=== PATIENT | female | born 1985 | race Caucasian/White ===

== ENCOUNTER 2020-09-07 15:53 | Emergency (ER) | payer OTHER ==
[~2020-09-07] VITALS: Ht 172.7 cm; Wt 72.4 kg
[2020-09-07 16:03] VITALS: BP 131/80
[2020-09-07] MEDS ORDERED: TIZA4CAP6 PO (16:09)
[2020-09-07] MEDS ORDERED: OXYC1TAB15 PO (16:09)
[2020-09-07] MEDS ORDERED: predniSONE 20 MG TAB PO ONE (16:40)
[2020-09-07] MEDS ORDERED: methocarbamoL 750 MG TAB PO ONE (16:40)
[2020-09-07] MEDS ORDERED: ROBA750T4 PO (16:42)
[2020-09-07] MEDS ORDERED: PRED20TA PO (16:42)
== END 2020-09-07 16:57 | disposition home or self-care (01) ==
LOC: M ED 15:53
DX: M62.838 Other muscle spasm (principal); M25.511 Pain in right shoulder; M54.6 Pain in thoracic spine; R51.9 Headache, unspecified; Z88.6 Allergy status to analgesic agent; Z79.899 Other long term (current) drug therapy

== ENCOUNTER 2021-04-28 14:48 | Inpatient (IN) | payer MEDICAID, OTHER ==
[~2021-04-28] VITALS: Ht 172.7 cm; Wt 65.8 kg
[~2021-04-28 14:48] MED LIST: OXYC7.5T3 PO; PRED20TA PO; ROBA750T4 PO; TIZA4CAP6 PO
--- OUTSIDE RECORDS SUMMARY | 2021-04-28 14:59 | CCD ---
Author Author [facility] Organization [facility] Address Unknown Phone Unavailable Care Team Providers Care Secretary Administrative Assistant Name Role Phone Vincenzo Zamorano MD Unavailable Unavailable Vincenzo Zamorano MD Unavailable Unavailable Vincenzo Zamorano MD Unavailable Unavailable Vincenzo Zamorano MD Unavailable Unavailable Vincenzo Zamorano MD Unavailable Unavailable Vincenzo Zamorano MD Unavailable Unavailable Vincenzo Zamorano MD Unavailable Unavailable Vincenzo Zamorano MD Unavailable Unavailable Vincenzo Zamorano MD Unavailable Unavailable Vincenzo Zamorano MD Unavailable Unavailable Vincenzo Zamorano MD Unavailable Unavailable Vincenzo Zamorano MD Unavailable Vincenzo Mo MD Unavailable Unavailable Vincenzo Zamorano MD Unavailable Unavailable Vincenzo Zamorano MD Unavailable Unavailable Chahfe, Vincenzo Tye FITZGERALD Unavailable Unavailable Chahfe, Vincenzo Tye MD Unavailable Unavailable Chahfe, Vincenzosuzy Gamble MD Unavailable Unavailable Chahfe, Vincenzo Tye FITZGERALD Unavailable Unavailable Chahfe, Vincenzo Tye MD Unavailable Unavailable Moraimahfe, Vincenzo Tye FITZGERALD Unavailable Unavailable Chahfe, Vincenzo Tye MD Unavailable Unavailable Chahfe, Vincenzo Tye FITZGERALD Unavailable Unavailable Chahfe, Vincenzo Tye MD Unavailable Unavailable Chahfe, Vincenzo Tye MD Unavailable Unavailable Chahfe, Vincenzo Tye FITZGERALD Unavailable Unavailable Chahfe, Vincenzo Tye MD Unavailable Unavailable Moraimahfe, Vincenzo Tye FITZGERALD Unavailable Unavailable Moraimahfe, Vincenzo Tye FITZGERALD Unavailable Unavailable Moraimahfe, Vincenzo Tye FITZGERALD Unavailable Unavailable Moraimahfe, Vincenzo Tye FITZGERALD Unavailable Unavailable Moraimahfe, Vincenzo Tye FITZGERALD Unavailable Unavailable Matheusfe, Vincenzo Tye FITZGERALD Unavailable Unavailable Moraimahfe, Vincenzo Tye FITZGERALD Unavailable Unavailable Chahfe, Vincenzosuzy Gamble MD Unavailable Unavailable Chadianafe, Vincenzosuzy Gamble MD Unavailable Unavailable Matheusfe, Vincenzo Tye FITZGERALD Unavailable Unavailable Matheusfe, Vincenzosuzy Gamble MD Unavailable Unavailable Matheusfe, Vincenzosuzy Gamble MD Unavailable Unavailable Matheusfe, Vincenzosuzy Gamble MD Unavailable Unavailable Matheusfe, Vincenzosuzy Gamble MD Unavailable Unavailable Lona, Vincenzosuzy Gamble MD Unavailable Unavailable Lona, Vincenzosuzy Gamble MD Unavailable Unavailable Lona, Vincenzosuzy Gamble MD Unavailable Unavailable Lona, Vincenzosuzy Gamble MD Unavailable Unavailable Matheusfe, Vincenzosuzy Gamble MD Unavailable Unavailable Lona, Vincenzosuzy Gamble MD Unavailable Unavailable Lona, Vincenzosuzy Gamble MD Unavailable Unavailable Lona, Vincenzosuzy Gamble MD Unavailable Unavailable Lona, Vincenzo Gamble MD Unavailable Unavailable Vincenzo Zamorano MD Unavailable Unavailable Lona, Vincenzosuzy Gamble MD Unavailable Unavailable Vincenzo Zamorano MD Unavailable Unavailable Lona, Vincenzosuzy Gamble MD Unavailable Unavailable Vincenzo Zamorano MD Unavailable Unavailable Lona, Vincenzosuzy Gamble MD Unavailable Unavailable Vincenzo Zamorano MD Unavailable Unavailable Vincenzo Zamorano MD Unavailable Unavailable Vincenzo Zamorano MD Unavailable Unavailable Vincenzo Zamorano MD Unavailable Unavailable Vincenzo Zamorano MD Unavailable Unavailable Vincenzo Zamorano MD Unavailable Unavailable Vincenzo Zamorano MD Unavailable Unavailable Vincenzo Zamorano MD Unavailable Unavailable Vincenzo Zamorano MD Unavailable Unavailable Vincenzo Zamorano MD Unavailable Unavailable Vincenzo Zamorano MD Unavailable Unavailable Vincenzo Zamorano MD Unavailable Unavailable Vincenzo Zamorano MD Unavailable Unavailable Vincenzo Zamorano MD Unavailable Unavailable Vincenzo Zamorano MD Unavailable Unavailable Vincenzo Zamorano MD Unavailable Unavailable Vincenzo Zamorano MD Unavailable Unavailable Vincenzo Zamorano MD Unavailable Unavailable Vincenzo Zamorano MD Unavailable Unavailable Vincenzo Zamorano MD Unavailable Unavailable Vincenzo Zamorano MD Unavailable Unavailable Vincenzo Zamorano MD Unavailable Unavailable Vincenzo Zamorano MD Unavailable Unavailable Vincenzo Zamorano MD Unavailable Unavailable Vincenzo Zamorano MD Unavailable Unavailable Vincenzo Zamorano MD Unavailable Unavailable Vincenzo Zamorano MD Unavailable Unavailable Atul Savage Unavailable Unavailable Dashawn CANALES MD Unavailable Unavailable Dashawn CANALES MD Unavailable Unavailable Dashawn CANALES MD Unavailable Unavailable Dashawn CANALES MD Unavailable Unavailable Dashawn CANALES MD Unavailable Unavailable Dashawn CANALES MD Unavailable Unavailable Dashawn CANALES MD Unavailable Unavailable Dashawn CANALES MD Unavailable Unavailable Dashawn CANALES MD Unavailable Unavailable Dashawn CANALES MD Unavailable Unavailable Dashawn CANALES MD Unavailable Unavailable Dashawn CANALES MD Unavailable Unavailable Dashawn CANALES MD Unavailable Unavailable Dashawn CANALES MD Unavailable Unavailable Dashawn CANALES MD Unavailable Unavailable Dashawn CANALES MD Unavailable Unavailable Dashawn CANALES MD Unavailable Unavailable Dashawn CANALES MD Unavailable Unavailable Dashawn CANALES MD Unavailable Unavailable Dashawn CANALES MD Unavailable Unavailable Dashawn CANALES MD Unavailable Unavailable Dashawn CANALES MD Unavailable Unavailable Dashawn CANALES MD Unavailable Unavailable Dashawn CANALES MD Unavailable Unavailable Dashawn CANALES MD Unavailable Unavailable Dashawn CANALES MD Unavailable Unavailable Rosemary Handy MD Unavailable Unavailable Rosemary Handy MD Unavailable Unavailable Rosemary Handy MD Unavailable Unavailable Rosmeary Handy MD Unavailable Unavailable Rosemary Handy MD Unavailable Unavailable Rosemary Handy MD Unavailable Unavailable Rosemary Handy MD Unavailable Unavailable Rosemary Handy MD Unavailable Unavailable Rosemary Handy MD Unavailable Unavailable Rosemary Handy MD Unavailable Unavailable Rosemary Handy MD Unavailable Unavailable Rosemary Handy MD Unavailable Unavailable Rosemary Handy MD Unavailable Unavailable Rosemary Handy MD Unavailable Unavailable Rosemary Handy MD Unavailable Unavailable Rosemary Handy MD Unavailable Unavailable Rosemary Handy MD Unavailable Unavailable Rosemary Handy MD Unavailable Unavailable Rosemary Handy MD Unavailable Unavailable Rosemary Handy MD Unavailable Unavailable Rosemary Handy MD Unavailable Unavailable Hadian, Josse Unavailable Unavailable Hadian, Josse Unavailable Unavailable Hadian, Josse Unavailable Unavailable Hadian, Josse Unavailable Unavailable Hadian, Josse Unavailable Unavailable Hadian, Josse Unavailable Unavailable Hadian, Josse Unavailable Unavailable Hadian, Josse Unavailable Unavailable Hadian, Josse Unavailable Unavailable Hadian, Josse Unavailable Unavailable Hadian, Josse Unavailable Unavailable Hadian, Josse Unavailable Unavailable Hadian, Josse Unavailable Unavailable Hadian, Josse Unavailable Unavailable Hadian, Josse Unavailable Unavailable Hadian, Josse Unavailable Unavailable Hadian, Josse Unavailable Unavailable Hadian, Josse Unavailable Unavailable Hadian, Josse Unavailable Unavailable Hadian, Josse Unavailable Unavailable Hadian, Josse Unavailable Unavailable Hadian, Josse Unavailable Unavailable Hadian, Josse Unavailable Unavailable Hadian, Josse Unavailable Unavailable Hadian, Josse Unavailable Unavailable Hadian, Josse Unavailable Unavailable Hadian, Josse Unavailable Unavailable Hadian, Josse Unavailable Unavailable Hadian, Josse Unavailable Unavailable Hadian, Josse Unavailable Unavailable Hadian, Josse Unavailable Unavailable Hadian, Josse Unavailable Unavailable Hadian, Josse Unavailable Unavailable Hadian, Josse Unavailable Unavailable Hadian, Josse Unavailable Unavailable Hadian, Josse Unavailable Unavailable Hadian, Josse Unavailable Unavailable Hadian, Josse Unavailable Unavailable Hadian, Josse Unavailable Unavailable Hadian, Josse Unavailable Unavailable Hadian, Josse Unavailable Unavailable Hadian, Josse Unavailable Unavailable María F Brown, F SOFT SUGAR SUPERVISOR SOFT SUGAR SUPERVISOR Unavailable Unavailable María F Brown, F SOFT SUGAR SUPERVISOR SOFT SUGAR SUPERVISOR Unavailable Unavailable ANTON BUI MD Unavailable Unavailable ANTON BUI MD Unavailable Unavailable ANTON BUI MD Unavailable Unavailable ANTON BUI MD Unavailable Unavailable ANTON BUI MD Unavailable Unavailable ANTON BUI MD Unavailable Unavailable ANTON BUI MD Unavailable Unavailable ANTON BUI MD Unavailable Unavailable ANTON BUI MD Unavailable Unavailable ANTON BUI MD Unavailable Unavailable ANTON BUI MD Unavailable Unavailable ANTON BUI MD Unavailable Unavailable ANTON BUI MD Unavailable Unavailable ANTON BUI MD Unavailable Unavailable ANTON BUI MD Unavailable Unavailable ANTON BUI MD Unavailable Unavailable ANTON BUI MD Unavailable Unavailable ANTON BUI MD Unavailable Unavailable ANTON BUI MD Unavailable Unavailable ANTON BUI MD Unavailable Unavailable ANTON BUI MD Unavailable Unavailable ANTON BUI MD Unavailable Unavailable ANTON BUI MD Unavailable Unavailable ANTON BUI MD Unavailable Unavailable ANTON BUI MD Unavailable Unavailable ANTON BUI MD Unavailable Unavailable ANTON BUI MD Unavailable Unavailable ANTON BUI MD Unavailable Unavailable ANTON BUI MD Unavailable Unavailable ANTON BUI MD Unavailable Unavailable ANTON BUI MD Unavailable Unavailable ANTON BUI MD Unavailable Unavailable ANTON BUI MD Unavailable Unavailable ANTON BUI MD Unavailable Unavailable ANOTN BUI MD Unavailable Unavailable ANTON BUI MD Unavailable Unavailable ANTON BUI MD Unavailable Unavailable ANTON BUI MD Unavailable Unavailable ANTON BUI MD Unavailable Unavailable ANTON BUI MD Unavailable Unavailable ANTON BUI MD Unavailable Unavailable ANTON BUI MD Unavailable Unavailable ANTON BUI MD Unavailable Unavailable ANTON BUI MD Unavailable Unavailable ANTON BUI MD Unavailable Unavailable ANTON BUI MD Unavailable Unavailable ANTON BUI MD Unavailable Unavailable ANTON BUI MD Unavailable Unavailable ANTON BUI MD Unavailable Unavailable ANTON BUI MD Unavailable Unavailable ANTON BUI MD Unavailable Unavailable ANTON BUI MD Unavailable Unavailable ANTON BUI MD Unavailable Unavailable ANTON BUI MD Unavailable Unavailable RAMYAANTON ROBB MD Unavailable Unavailable RAMYAANTON ROBB MD Unavailable Unavailable ANTON BUI MD Unavailable Unavailable ANTON BUI MD Unavailable Unavailable ANTON BUI MD Unavailable Unavailable ANTON BUI MD Unavailable Unavailable RAMYAANTON ROBB MD Unavailable Unavailable RAMYAANTON ROBB MD Unavailable Unavailable RAMYAANTON ROBB MD Unavailable Unavailable RAMYAANTON ROBB MD Unavailable Unavailable RAMYAANTON ROBB MD Unavailable Unavailable RAMYAANTON ROBB MD Unavailable Unavailable RAMYAANTON ROBB MD Unavailable Unavailable RAMYAANTON ROBB MD Unavailable Unavailable RAMYAANTON ROBB MD Unavailable Unavailable RAMYAANTON ROBB MD Unavailable Unavailable RAMYAANTON ROBB MD Unavailable Unavailable ANTON BUI MD Unavailable Unavailable ANTON BUI MD Unavailable Unavailable ATNON BUI MD Unavailable Unavailable ANTON BUI MD Unavailable Unavailable ANTON BUI MD Unavailable Unavailable ANTON BUI MD Unavailable Unavailable ANTON BUI MD Unavailable Unavailable ANTON BUI MD Unavailable Unavailable ANTON BUI MD Unavailable Unavailable ANTON BUI MD Unavailable Unavailable ANTON BUI MD Unavailable Unavailable ANTON BUI MD Unavailable Unavailable ANTON BUI MD Unavailable Unavailable ANTON BUI MD Unavailable Unavailable Bella Crisostomo MD Unavailable Unavailable Bella Crisostomo MD Unavailable Unavailable Bella Crisostomo MD Unavailable Unavailable Bella Crisostomo MD Unavailable Unavailable Hadian, Josse Unavailable Unavailable Hadian, Josse Unavailable Unavailable Hadian, Josse Unavailable Unavailable Hadian, Josse Unavailable Unavailable Hadian, Josse Unavailable Unavailable Hadian, Josse Unavailable Unavailable Hadian, Josse Unavailable Unavailable Hadian, Josse Unavailable Unavailable Hadian, Josse Unavailable Unavailable Hadian, Josse Unavailable Unavailable Hadian, Josse Unavailable Unavailable Hadian, Josse Unavailable Unavailable Hadian, Josse Unavailable Unavailable Hadian, Josse Unavailable Unavailable Hadian, Josse Unavailable Unavailable Hadian, Josse Unavailable Unavailable Hadian, Josse Unavailable Unavailable Hadian, Josse Unavailable Unavailable Hadian, Josse Unavailable Unavailable Hadian, Josse Unavailable Unavailable Hadian, Josse Unavailable Unavailable Hadian, Josse Unavailable Unavailable Hadian, Josse Unavailable Unavailable Hadian, Josse Unavailable Unavailable Hadian, Josse Unavailable Unavailable Hadian, Josse Unavailable Unavailable Hadian, Josse Unavailable Unavailable Hadian, Josse Unavailable Unavailable Hadian, Josse Unavailable Unavailable Hadian, Josse Unavailable Unavailable Hadian, Josse Unavailable Unavailable Hadian, Josse Unavailable Unavailable Hadian, Josse Unavailable Unavailable Hadian, Josse Unavailable Unavailable Hadian, Josse Unavailable Unavailable Hadian, Josse Unavailable Unavailable Hadian, Josse Unavailable Unavailable Hadian, Josse Unavailable Unavailable Hadian, Josse Unavailable Unavailable Hadian, Josse Unavailable Unavailable Hadian, Josse Unavailable Unavailable Hadian, Josse Unavailable Unavailable Rosemary Handy MD Unavailable Unavailable Rosemary Handy MD Unavailable Unavailable Rosemary Handy MD Unavailable Unavailable Rosemary Handy MD Unavailable Unavailable Rosemary Handy MD Unavailable Unavailable Rosemary Handy MD Unavailable Unavailable Rosemary Handy MD Unavailable Unavailable Rosemary Handy MD Unavailable Unavailable Rosemary Handy MD Unavailable Unavailable Rosemary Handy MD Unavailable Unavailable Rosemary Handy MD Unavailable Unavailable Rosemary Handy MD Unavailable Unavailable Rosemary Handy MD Unavailable Unavailable Rosemary Handy MD Unavailable Unavailable Rosemary Handy MD Unavailable Unavailable Rosemary Handy MD Unavailable Unavailable Rosemary Handy MD Unavailable Unavailable Rosemary Handy MD Unavailable Unavailable Rosemary Handy MD Unavailable Unavailable Rosemary Handy MD Unavailable Unavailable Rosemary Handy MD Unavailable Unavailable CICIENRIQUETA MD Unavailable Unavailable CICI, ENRIQUETA MD Unavailable Unavailable CICI, ENRIQUETA MD Unavailable Unavailable CICI, ENRIQUETA MD Unavailable Unavailable CICI, ENRIQUETA FITZGERALD Unavailable Unavailable CICI, ENRIQUETA MD Unavailable Unavailable CICI, ENRIQUETA MD Unavailable Unavailable CICI, ENRIQUETA MD Unavailable Unavailable CICI, ENRIQUETA MD Unavailable Unavailable CICI, ENRIQUETA MD Unavailable Unavailable CICI, ENRIQUETA MD Unavailable Unavailable CICI, ENRIQUETA MD Unavailable Unavailable CICI, ENRIQUETA MD Unavailable Unavailable CICI, ENRIQUETA MD Unavailable Unavailable CICI, ENRIQUETA MD Unavailable Unavailable CICI, ENRIQUETA MD Unavailable Unavailable CICI, ENRIQUETA MD Unavailable Unavailable CICI, ENRIQUETA MD Unavailable Unavailable CICI, ENRIQUETA MD Unavailable Unavailable CICI, ENRIQUETA MD Unavailable Unavailable CICI, ENRIQUETA MD Unavailable Unavailable CICI, ENRIQUETA MD Unavailable Unavailable CICI, ENRIQUETA MD Unavailable Unavailable CICI, ENRIQUETA MD Unavailable Unavailable CICI, ENRIQUETA MD Unavailable Unavailable CICI, ENRIQUETA MD Unavailable Unavailable CICI, ENRIQUETA MD Unavailable Unavailable CICI, ENRIQUETA MD Unavailable Unavailable CICI, ENRIQUETA MD Unavailable Unavailable CICI, ENRIQUETA MD Unavailable Unavailable CICI, ENRIQUETA MD Unavailable Unavailable CICI, ENRIQUETA MD Unavailable Unavailable CICI, ENRIQUETA MD Unavailable Unavailable CICI, ENRIQUETA MD Unavailable Unavailable CICI, ENRIQUETA MD Unavailable Unavailable CICI, ENRIQUETA MD Unavailable Unavailable CICI, ENRIQUETA MD Unavailable Unavailable CICI, ENRIQUETA MD Unavailable Unavailable CICI, ENRIQUETA MD Unavailable Unavailable CICI, ENRIQUETA MD Unavailable Unavailable CICI, ENRIQUETA MD Unavailable Unavailable CICI, ENRIQUETA MD Unavailable Unavailable CICI, ENRIQUETA MD Unavailable Unavailable Capone, Marisabel Anny PA Unavailable Unavailable Capone, Marisabel Anny PA Unavailable Unavailable Capone, Marisabel Anny PA Unavailable Unavailable Capone, Marisabel Anny PA Unavailable Unavailable Capone, Marisabel Anny PA Unavailable Unavailable Capone, Marisabel Anny PA Unavailable Unavailable Capone, Marisabel Anny PA Unavailable Unavailable Capone, Marisabel Anny PA Unavailable Unavailable Capone, Marisabel Anny PA Unavailable Unavailable Capone, Marisabel Anny PA Unavailable Unavailable Elsie Can MD Unavailable Unavailable Elsie Can MD Unavailable Unavailable BROWN, CR MARÍA SEARCH AND RESCUE OFFICER Unavailable Unavailable BROWN, CR MARÍA SEARCH AND RESCUE OFFICER Unavailable Unavailable BROWN, CR MARÍA SEARCH AND RESCUE OFFICER Unavailable Unavailable BROWN, CR MARÍA SEARCH AND RESCUE OFFICER Unavailable Unavailable BROWN, CR MARÍA SEARCH AND RESCUE OFFICER Unavailable Unavailable BROWN, CR MARÍA SEARCH AND RESCUE OFFICER Unavailable Unavailable BROWN, CR MARÍA SEARCH AND RESCUE OFFICER Unavailable Unavailable BROWN, CR MARÍA SEARCH AND RESCUE OFFICER Unavailable Unavailable BROWN, CR MARÍA SEARCH AND RESCUE OFFICER Unavailable Unavailable BROWN, RC MARÍA SEARCH AND RESCUE OFFICER Unavailable Unavailable BROWN, CR MARÍA SEARCH AND RESCUE OFFICER Unavailable Unavailable BROWN, CR MARÍA SEARCH AND RESCUE OFFICER Unavailable Unavailable BROWN, CR MARÍA SEARCH AND RESCUE OFFICER Unavailable Unavailable BROWN, CR MARÍA SEARCH AND RESCUE OFFICER Unavailable Unavailable BROWN, CR MARÍA SEARCH AND RESCUE OFFICER Unavailable Unavailable BROWN, CR MARÍA SEARCH AND RESCUE OFFICER Unavailable Unavailable BROWN, CR MARÍA SEARCH AND RESCUE OFFICER Unavailable Unavailable BROWN, CR MARÍA SEARCH AND RESCUE OFFICER Unavailable Unavailable BROWN, CR MARÍA SEARCH AND RESCUE OFFICER Unavailable Unavailable BROWN, CR MARÍA SEARCH AND RESCUE OFFICER Unavailable Unavailable BROWN, CR MARÍA SEARCH AND RESCUE OFFICER Unavailable Unavailable BROWN, CR MARÍA SEARCH AND RESCUE OFFICER Unavailable Unavailable BROWN, CR MARÍA SEARCH AND RESCUE OFFICER Unavailable Unavailable BROWN, CR MARÍA SEARCH AND RESCUE OFFICER Unavailable Unavailable BROWN, CR MARÍA SEARCH AND RESCUE OFFICER Unavailable Unavailable BROWN, CR MARÍA SEARCH AND RESCUE OFFICER Unavailable Unavailable BROWN, CR MARÍA SEARCH AND RESCUE OFFICER Unavailable Unavailable BROWN, CR MARÍA SEARCH AND RESCUE OFFICER Unavailable Unavailable BROWN, CR MARÍA SEARCH AND RESCUE OFFICER Unavailable Unavailable BROWN, CR MARÍA SEARCH AND RESCUE OFFICER Unavailable Unavailable BROWN, CR MARÍA SEARCH AND RESCUE OFFICER Unavailable Unavailable BROWN, CR MARÍA SEARCH AND RESCUE OFFICER Unavailable Unavailable BROWN, CR MARÍA SEARCH AND RESCUE OFFICER Unavailable Unavailable BROWN, CR MARÍA SEARCH AND RESCUE OFFICER Unavailable Unavailable BROWN, CR MARÍA SEARCH AND RESCUE OFFICER Unavailable Unavailable BROWN, CR MARÍA SEARCH AND RESCUE OFFICER Unavailable Unavailable BROWN, CR MARÍA SEARCH AND RESCUE OFFICER Unavailable Unavailable BROWN, CR MARÍA SEARCH AND RESCUE OFFICER Unavailable Unavailable BROWN, CR MARÍA SEARCH AND RESCUE OFFICER Unavailable Unavailable BROWN, CR MARÍA SEARCH AND RESCUE OFFICER Unavailable Unavailable Re-disclosure Warning The records that you are about to access may contain information from federally-assisted alcohol or drug abuse programs. If such information is present, then the following federally mandated warning applies: This information has been disclosed to you from records protected by federal confidentiality rules (42 CFR part 2). The federal rules prohibit you from making any further disclosure of this information unless further disclosure is expressly permitted by the written consent of the person to whom it pertains or as otherwise permitted by 42 CFR part 2. A general authorization for the release of medical or other information is NOT sufficient for this purpose. The Federal rules restrict any use of the information to criminally investigate or prosecute any alcohol or drug abuse patient.The records that you are about to access may contain highly sensitive health information, the redisclosure of which is protected by Article 27-F of the [facility] Public [facility] law. If you continue you may have access to information: Regarding HIV / AIDS; Provided by facilities licensed or operated by the [facility] Office of Mental Health; or Provided by the [facility] Office for People With Developmental Disabilities. If such information is present, then the following [facility] mandated warning applies: This information has been disclosed to you from confidential records which are protected by state law. State law prohibits you from making any further disclosure of this information without the specific written consent of the person to whom it pertains, or as otherwise permitted by law. Any unauthorized further disclosure in violation of state law may result in a fine or nursing home sentence or both. A general authorization for the release of medical or other information is NOT sufficient authorization for further disc losure. Allergies and Adverse Reactions Type Description Substance Reaction Status Data Source(s ) Drug allergy Drug allergy ibuprofen (From Motrin) [facility] Drug allergy Drug allergy Latex, Natural Rubber Rash [facility] Ibuprofen Ibuprofen [facility] ([facility]) Encounters Encounter Providers Location Date Indications Data Source(s ) Emergency Attender: Elsie Can MD ED-ED 021 06:33:00 PM EST - 04/27/2021 07:27:00 PM EST FEELS LIKE SHES GOING TO HURT HERSELF [facility] FEELS LIKE SHES GOING TO HURT HERSELF Patient discharged. Outpatient Attender: MARÍA LOREDO NP CPSCAORT-CPSGNOBG 09/2020 01:00:00 PM EDT - 04/14/2021 01:01:[address] [facility] Patient discharged. Outpatient Attender: MARÍA LOREDO NP ED-IMAG 2020 11:06:00 AM EDT - 04/08/2021 11:07:00 AM EDT PELVIC PAIN [facility] PELVIC PAIN Patient discharged. Outpatient Attender: Atul Mathewdmitter: Atul Savage [address] [place] [address] 04/01/2021 10:00:00 AM EDT [facility] ([facility]) Patient admitted. Emergency Attender: Cody Crisostomo MDAttender: Cody Suarez MD ED-ED 03/27/2021 12:49:00 PM EDT - 03/27/2021 02:18:00 PM EDT BACK AND HIP PAIN [facility] BACK AND HIP PAIN Patient discharged. Emergency Attender: Cody Crisostomo MD ED-ED 11:34:00 AM EDT - 03/27/2021 12:00:00 PM EDT PAIN IN BACK AND R HIP [facility] PAIN IN BACK AND R HIP Patient discharged. Outpatient Attender: DARYL CANALES MD CPSCAORT-CPSCAORT 03/26/2021 08:05:00 AM EDT - 03/26/2021 08:06:[address] [facility] Patient discharged. Outpatient Attender: KIMBER Loredo FNPAttender: MARÍA LOREDO NP ED-LAB 03/25/2021 01:05:00 PM EDT - 03/25/2021 01:06:00 PM EDT Z124 [facility] Z124 Patient discharged. Outpatient Attender: KIMBER Loredo FNPAttender : MARÍA LOREDO NP CPSCAORT-LABEJN 03/25/2021 10:20:00 AM EDT Z12.4 [facility] Z12.4 Outpatient Attender: MARÍA LOREDO NP CPSCAORT-CPSGNOBG 03/11 09:35:00 AM EDT - 03/25/2021 09:36:[address] [facility] Patient discharged. Outpatient Attender: La Handy MD CPSJAROCHO-CPSCARAFAL 11:20:00 AM EDT - 03/10/2021 11:21:00 AM EDT [facility] Patient discharged. Outpatient Attender: La Handy MD ED-LABCOVGH 02/10 07:02:00 PM EDT - 03/08/2021 07:03:00 PM EDT Z01.812 [facility] Z01.812 Patient discharged. Outpatient Attender: Josse SIMS-CPSGNIMD 021 11:22:00 AM EDT - 02/28/2021 11:23:00 AM EDT [facility] Patient discharged. Outpatient Attender: JUANITO BUI MDReferrer: Josse Mills 02/09/2021 12:09:18 PM EDT [facility] Recurring Patient Referrer: Josse Mills 02/09/2021 10:33: 53 AM EDT [facility] Rec[facility] Patient Referrer: Josse Mills 02/09/2021 10:22: 54 AM EDT [facility] Recurring Patient Referrer: Josse Mills 12/31/2020 12:25: 36 PM EDT [facility] Outpatient Attender: Josse Mills CPSCAORT-CPSGNIMD 021 04:01:00 PM EDT - 12/09/2020 04:02:00 PM EDT [facility] Patient discharged. Outpatient Attender: Josse Mills CPSCAORT-CPSGNIMD 021 08:18:00 AM EDT - 10/25/2020 08:19:00 AM EDT [facility] Patient discharged. Outpatient Attender: ENRIQUETA BOLANOS MD Main office - [facility] 08/16/2020 02:00:00 PM EST [facility] ([facility]) Outpatient Attender: ENRIQUETA BOLANOS MD Main office - [facility] 07/06/2020 11:30:00 AM EST [facility] ([facility]) Outpatient Attender: Josse Gene CPSCAORT-CPSGNIMD 021 02:40:00 PM EST - 06/24/2020 02:41:00 PM EST [facility] Patient discharged. Outpatient Attender: Anny Zhao alberto 03/17/2020 03:45:00 PM EDT [facility] ([facility]) Outpatient Attender: Tye Zamorano MD 03/11/2020 02:34:00 P M EDT SINUSITIS,R42 [facility] SINUSITIS,R42 Immunizations Vaccine Date Status Description Data Source(s) COVID-19 VACCINE Moderna 04/24/2021 12:00:00 AM EST completed [facility] Vaccine Series Complete: NOThis Data was Submitted to [facility] Via [employer]. TB Skin test is not vaccine. 03/17/2020 02:42:00 PM EDT completed [facility] ([facility] Medications Medication Brand Name Start Date Product Form Dose Route Admi nistrative Instructions Pharmacy Instructions Status Indications Reaction Description Data Source(s) 10-325 mg 04/04/2021 12:00:00 AM EDT tablet 120 TAKE ONE TABLET BY MOUTH EVERY 6 HOURS NEEDED MAXIMUM DAILY DOSE = 4 TABLETS TAKE ONE TABLET BY MOUTH EVERY 6 HOURS NEEDED MAXIMUM DAILY DOSE = 4 TABLETS SOLD: 04/04/2021 [facility] 30 mg 04/01/2021 12:00:00 AM EDT capsule,delayed release (DR/EC) 30 TAKE ONE CAPSULE BY MOUTH EVERY DAY TAKE ONE CAPSULE BY MOUTH EVERY DAY SOLD: 04/01/2021 [facility] 10-325 mg 03/06/2021 12:00:00 AM EDT tablet 120 TAKE ONE TABLET BY MOUTH EVERY 6 HOURS NEEDED MAXIMUM DAILY DOSE = 4 TAKE ONE TABLET BY MOUTH EVERY 6 HOURS NEEDED MAXIMUM DAILY DOSE = 4 SOLD: 03/06/2021 [facility] 10-325 mg 02/05/2021 12:00:00 AM EDT tablet 120 TAKE 1 TABLET BY MOUTH EVERY 6 HOURS NEEDED MAXIMUM DAILY DOSE = 4 TABLETS TAKE 1 TABLET BY MOUTH EVERY 6 HOURS NEEDED MAXIMUM DAILY DOSE = 4 TABLETS SOLD: 02/05/2021 [facility] 10-325 mg 01/06/2021 12:00:00 AM EDT tablet 120 TAKE ONE TABLET BY MOUTH EVERY 6 HOURS NEEDED MAXIMUM DAILY DOSE = 4 TAKE ONE TABLET BY MOUTH EVERY 6 HOURS NEEDED MAXIMUM DAILY DOSE = 4 SOLD: 01/07/2021 [facility] 10-325 mg 12/09/2020 12:00:00 AM EDT tablet 120 TAKE ONE TABLET BY MOUTH EVERY 6 HOURS NEEDED MAXIMUM DAILY DOSE = 4 TAKE ONE TABLET BY MOUTH EVERY 6 HOURS NEEDED MAXIMUM DAILY DOSE = 4 SOLD: 12/09/2020 [facility] 7.5-325 mg 11/20/2020 12:00:00 AM EDT tablet 120 TAKE ONE TABLET BY MOUTH EVERY 6 HOURS NEEDED MAXIMUM DAILY DOSE = 4 TAKE ONE TABLET BY MOUTH EVERY 6 HOURS NEEDED MAXIMUM DAILY DOSE = 4 SOLD: 11/20/2020 [facility] 7.5-325 mg 10/21/2020 12:00:00 AM EDT tablet 120 TAKE ONE TABLET BY MOUTH EVERY 6 HOURS NEEDED MAXIMUM DAILY DOSE = 4 TAKE ONE TABLET BY MOUTH EVERY 6 HOURS NEEDED MAXIMUM DAILY DOSE = 4 SOLD: 10/22/2020 [facility] 7.5-325 mg 09/22/2020 12:00:00 AM EDT tablet 120 TAKE ONE TABLET BY MOUTH EVERY 6 HOURS NEEDED MAXIMUM DAILY DOSE = 4 TAKE ONE TABLET BY MOUTH EVERY 6 HOURS NEEDED MAXIMUM DAILY DOSE = 4 SOLD: 09/23/2020 [facility] 20 mg 09/07/2020 12:00:00 AM EDT tablet 15 TAKE 3 TABLETS BY MOUTH EVERY DAY TAKE 3 TABLETS BY MOUTH EVERY DAY SOLD: 09/23/2020 [facility] 750 mg 09/07/2020 12:00:00 AM EDT tablet 15 TAKE ONE TABLET BY MOUTH THREE TIMES A DAY TAKE ONE TABLET BY MOUTH THREE TIMES A DAY SOLD: 09/23/2020 [facility] 7.5-325 mg 08/25/2020 12:00:00 AM EDT tablet 120 TAKE ONE TABLET BY MOUTH EVERY 6 HOURS NEEDED MAXIMUM DAILY DOSE = 4 TABLETS TAKE ONE TABLET BY MOUTH EVERY 6 HOURS NEEDED MAXIMUM DAILY DOSE = 4 TABLETS SOLD: 08/25/2020 [facility] tizanidine 4 MG Oral Tablet TIZANIDINE HCL 08/23/2020 12:00:00 AM EDT tablet 30 TAKE ONE TABLET BY MOUTH EVERY DAY NEEDED TAKE ONE TABLET BY MOUTH EVERY DAY NEEDED SOLD: 10/22/2020 [facility] tizanidine 4 MG Oral Tablet TIZANIDINE HCL 08/23/2020 12:00:00 AM EDT tablet 30 TAKE ONE TABLET BY MOUTH EVERY DAY NEEDED TAKE ONE TABLET BY MOUTH EVERY DAY NEEDED SOLD: 08/25/2020 [facility] tizanidine 4 MG Oral Tablet TIZANIDINE HCL 08/23/2020 12:00:00 AM EDT tablet 30 TAKE ONE TABLET BY MOUTH EVERY DAY NEEDED TAKE ONE TABLET BY MOUTH EVERY DAY NEEDED SOLD: 09/23/2020 [facility] tizanidine 4 MG Oral Tablet TIZANIDINE HCL 08/23/2020 12:00:00 AM EDT tablet 30 TAKE ONE TABLET BY MOUTH EVERY DAY NEEDED TAKE ONE TABLET BY MOUTH EVERY DAY NEEDED SOLD: 11/20/2020 [facility] tizanidine 4 MG Oral Tablet TIZANIDINE HCL 08/23/2020 12:00:00 AM EDT tablet 30 TAKE ONE TABLET BY MOUTH EVERY DAY NEEDED TAKE ONE TABLET BY MOUTH EVERY DAY NEEDED SOLD: 04/01/2021 [facility] tizanidine 4 MG Oral Tablet TIZANIDINE HCL 08/23/2020 12:00:00 AM EDT tablet 30 TAKE ONE TABLET BY MOUTH EVERY DAY NEEDED TAKE ONE TABLET BY MOUTH EVERY DAY NEEDED SOLD: 02/05/2021 [facility] Alprazolam 0.5 MG Oral Tablet [Xanax] Xanax 08/05/2020 12:00:00 AM EST active [facility] ([facility] ) Alprazolam 0.5 MG Oral Tablet ALPRAZOLAM 08/05/2020 12:00:00 AM EST ta blet 2 TAKE ONE TABLET BY MOUTH 15 MINUTES PRIOR TO THE SCAN, MAY REPEAT 30 MINUTES LATER IF STILL ANXIOUS MAXIMUM DAILY DOSE = 2 TAKE ONE TABLET BY MOUTH 15 MINUTES PRIOR TO THE SCAN, MAY REPEAT 30 MINUTES LATER IF STILL ANXIOUS MAXIMUM DAILY DOSE = 2 SOLD: 08/11/2020 [facility] 7.5-325 mg 07/26/2020 12:00:00 AM EST tablet 120 TAKE ONE TABLET BY MOUTH EVERY 6 HOURS NEEDED MAXIMUM DAILY DOSE = 4 TAKE ONE TABLET BY MOUTH EVERY 6 HOURS NEEDED MAXIMUM DAILY DOSE = 4 SOLD: 07/27/2020 [facility] 7.5-325 mg 06/28/2020 12:00:00 AM EST tablet 120 TAKE ONE TABLET BY MOUTH EVERY 6 HOURS NEEDED MAXIMUM DAILY DOSE = 4 TABLETS TAKE ONE TABLET BY MOUTH EVERY 6 HOURS NEEDED MAXIMUM DAILY DOSE = 4 TABLETS SOLD: 06/28/2020 [facility] 7.5-325 mg 06/03/2020 12:00:00 AM EST tablet 90 TAKE ONE TABLET BY MOUTH THREE TIMES A DAY NEEDED MAXIMUM DAILY DOSE = THREE TABLETS TAKE ONE TABLET BY MOUTH THREE TIMES A DAY NEEDED MAXIMUM DAILY DOSE = THREE TABLETS SOLD: 06/03/2020 [facility] 7.5-325 mg 05/28/2020 12:00:00 AM EST tablet 21 TAKE ONE TABLET BY MOUTH THREE TIMES A DAY NEEDED MAXIMUM DAILY DOSE = 3 TAKE ONE TABLET BY MOUTH THREE TIMES A DAY NEEDED MAXIMUM DAILY DOSE = 3 SOLD: 05/28/2020 [facility] 7.5-325 mg 04/30/2020 12:00:00 AM EST tablet 90 TAKE ONE TABLET BY MOUTH THREE TIMES A DAY NEEDED MAXIMUM DAILY DOSE = 3 TAKE ONE TABLET BY MOUTH THREE TIMES A DAY NEEDED MAXIMUM DAILY DOSE = 3 SOLD: 05/01/2020 [facility] 7.5-325 mg 03/31/2020 12:00:00 AM EDT tablet 90 TAKE 1 TABLET BY MOUTH 3 TIMES A DAY NEEDED MAXIMUM DAILY DOSE = 3 TAKE 1 TABLET BY MOUTH 3 TIMES A DAY NEEDED MAXIMUM DAILY DOSE = 3 SOLD: 04/01/2020 [facility] 4 mg 03/30/2020 12:00:00 AM EDT tablet 90 TAKE ONE TABLET BY MOUTH THREE TIMES A DAY NEEDED TAKE ONE TABLET BY MOUTH THREE TIMES A DAY NEEDED S OLD: 03/30/2020 [facility] tizanidine 4 MG Oral Tablet TIZANIDINE HCL 03/30/2020 12:00:00 AM EDT tablet 90 TAKE ONE TABLET BY MOUTH THREE TIMES A DAY NEEDED T EDUARDO ONE TABLET BY MOUTH THREE TIMES A DAY NEEDED SOLD: 04/28/2020 [facility] 7.5-325 mg 03/03/2020 12:00:00 AM EDT tablet 90 TAKE 1 TABLET BY MOUTH 3 TIMES A DAY NEEDED MAXIMUM DAILY DOSE = 3 TABLETS TAKE 1 TABLET BY MOUTH 3 TIMES A DAY NEEDED MAXIMUM DAILY DOSE = 3 TABLETS SOLD: 03/03/2020 [facility] 4 mg 03/03/2020 12:00:00 AM EDT tablet 90 TAKE ONE TABLET BY MOUTH THREE TIMES A DAY NEEDED TAKE ONE TABLET BY MOUTH THREE TIMES A DAY NEEDED S OLD: 03/03/2020 [facility] tizanidine 4 MG Oral Tablet TIZANIDINE HCL 03/03/2020 12:00:00 AM EDT tablet 90 TAKE ONE TABLET BY MOUTH THREE TIMES A DAY NEEDED T EDUARDO ONE TABLET BY MOUTH THREE TIMES A DAY NEEDED SOLD: 05/28/2020 [facility] Insurance Providers Payer name Policy type / Coverage type Policy ID Covered republican ID Covered republican's relationship to burgess Policy Burgess Plan Information [facility] Comm Plan Medicaid F [id number] SELF [id number] [facility] Comm Plan Medicaid F [id number] SELF [id number] [id number] 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 [id number] [facility] [id number] 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 [id number] MEDICAID [id number] 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 B [id number] [facility] [id number] SP [id number] [facility] [id number] SP [id number] [facility] [id number] SP [id number] MEDICAID [id number] SP [id number] P HE[facility] O [id number] S [id number] [facility] COMM PLAN [id number] 18 [id number] MEDICAID CLINIC -PHYSICIAN [id number] 1 [id number] MEDICAID -CLINIC [id number] MEDICAID S [id number] S [id number] [facility](MCAID) P [id number] S [id number] SELF PAY UNAVAILABLE UNAVAILA BLE AMERICHOICE UNHC XIX HMO -RECURRING [id number] 1 [id number] [facility] BLUE SHIELD-RECURRING [id number] [facility] FAMILY HEALTH PLUS -O/P [id number] [facility] COMMUNITY PLAN [facility] [id number] [facility] [id number] 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 [id number] Problems, Conditions, and Diagnoses Code Display Name Description Problem Type Effective Dates Data Source(s) R10.32 Left lower quadrant pain LEFT LOWER QUADRANT PAIN Diag nosis 04/14/2021 01:00:00 PM EDT [facility] R10.2 Pelvic and perineal pain PELVIC AND PERINEAL PAIN Diag nosis 04/14/2021 01:00:00 PM EDT [facility] Z30.013 Encounter for initial prescription of in jectable contraceptive ENCOUNTER FOR INITIAL PRESCRIPTION OF INJECTABLE CONTRACEP Diagnosis 09/2020 01:00:00 PM EDT [facility] G56.01 Carpal tunnel syndrome, right upper limb Carpal tunnel syndrome, right upper limb Diagnosis 04/01/2021 12:00:00 AM EDT [facility] ([facility]) G56.20 Lesion of ulnar nerve, unspecified upper limb Lesion of ulnar nerve, unspecified upper limb Diagnosis 04/01/2021 12:00:00 AM EDT [facility] ([facility]) H40.9 Unspecified glaucoma Unspecified glaucoma Diagnosis 04/01/2021 12:00:00 AM EDT [facility] ([facility]) J45.909 Unspecified asthma, uncomplicated Unspecified as thma, uncomplicated Diagnosis 04/01/2021 12:00:00 AM EDT [facility] ([facility] M15.4 Erosive (osteo)arthritis Erosive (osteo)arthritis Diag nosis 04/01/2021 12:00:00 AM EDT [facility] ([facility]) M50.30 Other cervical disc degeneration, unspec ified cervical region Other cervical disc degeneration, unspecified cervical region Diagnosis 04/01/2021 12:00:00 AM EDT [facility] ([facility]) N83.209 Unspecified ovarian cyst, unspecified si de Unspecified ovarian cyst, unspecified side Diagnosis 04/01/2021 12:00:00 AM EDT [facility] ([facility]) F33.1 Major depressive disorder, recurrent, mo derate Major depressive disorder, Recurrent episode, Moderate Diagnosis 04/01/2021 12:00:00 AM EDT [facility] ([facility]) F43.10 Post-traumatic stress disorder, unspecif ied Posttraumatic stress disorder Diagnosis 04/01/2021 12:00:00 AM EDT [facility] ([facility]) M25.559 Pain in unspecified hip PAIN IN UNSPECIFIED HIP Diagno sis 03/27/2021 12:49:00 PM [facility] M54.9 Dorsalgia, unspecified DORSALGIA, UNSPECIFIED Diagnosi s 03/27/2021 12:49:00 PM [facility] G56.21 Lesion of ulnar nerve, right upper limb LESION OF ULNAR NERVE, RIGHT UPPER LIMB Diagnosis 03/26/2021 08:05:00 AM T [facility] G56.01 Carpal tunnel syndrome, right upper limb CARPAL TUNNEL SYNDROME, RIGHT UPPER LIMB Diagnosis 03/26/2021 08:05:00 AM [facility] M77.8 Other enthesopathies, not elsewhere clas sified OTHER ENTHESOPATHIES, NOT ELSEWHERE CLASSIFIED Diagnosis 03/26/2021 08:05:00 AM [facility] M67.431 Ganglion, right wrist GANGLION, RIGHT WRIST Diagnosis 03/26/2021 08:05:00 AM [facility] M25.521 Pain in right elbow PAIN IN RIGHT ELBOW Diagnosis 1 08:05:00 AM [facility] Z11.51 Encounter for screening for human papill omavirus (HPV) ENCOUNTER FOR SCREENING FOR HUMAN PAPILLOMAVIRUS (HPV) Diagnosis 03/25/2021 01:05:00 PM [facility] Z12.4 Encounter for screening for malignant ne oplasm of cervix ENCOUNTER FOR SCREENING FOR MALIGNANT NEOPLASM OF CERVIX Diagnosis 03/25/2021 01:05: 00 PM [facility] N91.2 Amenorrhea, unspecified AMENORRHEA, UNSPECIFIED Diagno sis 03/25/2021 09:35:00 AM [facility] Z12.4 Encounter for screening for malignant ne oplasm of cervix ENCOUNTER FOR SCREENING FOR MALIGNANT NEOPLASM OF CERVIX Diagnosis 03/25/2021 09:35: 00 AM [facility] Z12.39 Encounter for other screening for malign ant neoplasm of breast ENCOUNTER FOR OTH SCREENING FOR MALIGNANT NEOPLASM OF BREAST Diagnosis 09:35:00 AM [facility] Z01.419 Encounter for gynecological examination (general) (routine) without abnormal findings ENCNTR FOR CARPENTER APPRENTICE EXAM (GENERAL) (ROUTINE) W/O ABN FINDIN GS Diagnosis 03/25/2021 09:35:00 AM [facility] F17.200 Nicotine dependence, unspecified, uncomp licated NICOTINE DEPENDENCE, UNSPECIFIED, UNCOMPLICATED Diagnosis 03/10/2021 11:20:00 AM [facility] R09.81 Nasal congestion NASAL CONGESTION Diagnosis 03/10/2021 11 :20:00 AM [facility] Z86.69 Personal history of other di seases of the nervous system and sense organs PERSONAL HISTORY OF DIS OF THE NERVOUS SYS AND SENSE ORGANS Diagnosis 03/10/2021 11:20:00 AM [facility] Z78.9 Other specified health status OTHER SPECIFIED HEALTH S TATUS Diagnosis 03/10/2021 11:20:00 AM [facility] J34.3 Hypertrophy of nasal turbinates HYPERTROPHY OF NASAL T URBINATES Diagnosis 03/10/2021 11:20:00 AM [facility] J34.2 Deviated nasal septum DEVIATED NASAL SEPTUM Diagnosis 03/10/2021 11:20:00 AM [facility] M79.601 Pain in right arm PAIN IN RIGHT ARM Diagnosis 02/28 11:22:00 AM [facility] M51.9 Unspecified thoracic, thorac olumbar and lumbosacral intervertebral disc disorder UNSP THORACIC, THORACOLUM AND LUMBOSACR INTVRT DISC DISORDER Diagnosis 12/09/2020 04:01:00 PM [facility] R09.82 Postnasal drip POSTNASAL DRIP Diagnosis 10/25/2020 08:18: 00 AM [facility] L20.84 Intrinsic (allergic) eczema INTRINSIC (ALLERGIC) ECZEM A Diagnosis 10/25/2020 08:18:00 AM [facility] M25.511 Pain in right shoulder PAIN IN RIGHT SHOULDER Diagnosi s 10/25/2020 08:18:00 AM [facility] [id number] Occipital headache Occipital headache Problem 12:00:00 AM EST [facility] ([facility]) Surgeries/Procedures Procedure Description Date Indications Data Source(s) OFFICE OUTPATIENT VISIT 10 MINUTES OFFICE/OUTPATIENT VISIT E ST 04/14/2021 12:00:00 AM [facility] THERAPEUTIC PROPHYLACTIC/DX INJECTION SUBQ/IM THER/PROPH/PATTI G INJ SC/IM 04/14/2021 12:00:00 AM [facility] Injection, medroxyprogesterone acetate, 1 mg 12:00:00 AM [facility] RADEX WRIST COMPLETE MINIMUM 3 VIEWS X-RAY EXAM OF WRIST 12:00:00 AM [facility] RADEX ELBOW COMPLETE MINIMUM 3 VIEWS X-RAY EXAM OF ELBOW 12:00:00 AM [facility] 82004 HPV HIGH-RISK TYPES 03/25/2021 12:00:00 AM [facility] CYTP CERV/VAG AUTO THIN LAYER PREP MNL SCREEN CYTOPATH C/V T HIN LAYER 03/25/2021 12:00:00 AM [facility] PERIODIC PREVENTIVE MED EST PATIENT 18-39 YRS PREV VISIT EST AGE 18-39 03/25/2021 12:00:00 AM [facility] OFFICE OUTPATIENT VISIT 5 MINUTES OFFICE/OUTPATIENT VISIT ES T 03/10/2021 12:00:00 AM [facility] NASAL ENDOSCOPY DIAGNOSTIC UNI/BI SPX NASAL ENDOSCOPY DX 12:00:00 AM [facility] Magnetic Resonance Angiogtaphy Head W/O Contrast Material(S) 08/12/2020 12:00:00 AM EST [facility] ([facility]) Magnetic Resonance Angiogtaphy Head W/O Contrast Material(S) 08/12/2020 12:00:00 AM EST [facility] ([facility]) Magnetic Resonance Angiography Neck W/O Contrast Materials 08/12/2020 12:00:00 AM EST [facility] ([facility]) Magnetic Resonance Angiography Neck W/O Contrast Materials 08/12/2020 12:00:00 AM EST [facility] ([facility]) Results ID Date Data Source [id number] 04/09/2021 06:09:00 AM EDT [facility] Imaging Services Department Imaging Report [address] [place], [place] [address] %(RAD)RES..mtdd.print.filter("line") Name: MICHELET VÁZQUEZ : 1985 Age/Sex: 35F Ordering Provider: KIMBER Lord Med Rec #: [id number] Reg Status: [facility] REF Room #: Date of Service: 04/08/21 Report Number: [id number] cc:KIMBER Lord; Josse Mills MD Send Report To: [id number] US/US Transvaginal Reason for exam: PELVIC PAIN FINDINGS: The uterus measures 6.4 x 2.3 x 3.7 cm. The endometrium is normal at7 mm. Left ovary measures 3.0 x 2.2 x 3.5 cm. Right ovary measures 2.5 x 1.7 x3.0 cm. Small follicles are identified bilaterally. No free fluid or torsion is identified. IMPRESSION: Unremarkable pelvic sonogram. REPORT DICTATED BY LA CHA, REVIEWED AND SIGNED BY DR. SHELDON REPORT SIGNATURE ON FILE Reported By: La Sheldon MD <Electronically signed by Aggie Sheldon MD> 04/11/21 1152 Dictation Date/Time: 04/08/21 1233 Transcribed Date/Time: 04/09/21 0609 Senior Manufacturing Test Engineer: MARTHA Name Value Range Interpretation Code Description Data Cindy rce(s) Supporting Document(s) ID Date Data Source [id number] 03/27/2021 01:32:00 PM [facility] Name Value Range Interpretation Code Description Data Cindy rce(s) Supporting Document(s) HCG,Ur Negative Normal (applies to non-numeric results) [facility] ID Date Data Source [id number] 03/28/2021 10:23:00 AM [facility] Imaging Services Department Imaging Report [address] [address] %(RAD)RES..mtdd.print.filter("line") Name: MICHELET VÁZQUEZ : 1985 Age/Sex: 35F Ordering Provider: Cody Crisostomo MD Med Rec #: [id number] Reg Status: [facility] Room #: Date of Service: 03/27/21 Report Number: [id number] cc:Josse Mills MD Send Report To: [id number] XRP/XR Hip Rt 2-3 Views Reason for exam: pain FINDINGS: There is normal alignment and position of the bones of the hip. No evidence for subluxation or fracture can be identified. No significant degenerative changes are noted within the hip. IMPRESSION: UNREMARKABLE HIP. Time portable performed: Fluoroscopy time in seconds: Number of Exposures: Contrast Agent in ml: Method of Administration: REPORT SIGNATURE ON FILE Reported By: Jeff Jansen DO <Electronically signed by Jeff Jansen DO> 03/28/21 1204 Dictation Date/Time: 03/27/21 1404 Transcribed Date/Time: 03/28/21 1023 Senior Manufacturing Test Engineer: DAVE Name Value Range Interpretation Code Description Data Cindy rce(s) Supporting Document(s) ID Date Data Source [id number] 03/28/2021 10:21:00 AM EDT [facility] Imaging Services Department Imaging Report [address] [place] [id number] %(RAD)RES..mtdd.print.filter("line") Name: MICHELET VÁZQUEZ : 1985 Age/Sex: 35F Ordering Provider: Cody Crisostomo MD Med Rec #: [id number] Reg Status: [facility] Room #: Date of Service: 03/27/21 Report Number: [id number] cc:Josse Mills MD Send Report To: [id number] XRP/XR L Spine Complete Reason for exam: pain FINDINGS: Normal lordosis. No fracture. No pars defect. No significant degenerative change. SI joint patent. IMPRESSION: Unremarkable lumbar spine. Normal alignment. No fracture or sig nificant degenerative change. Time portable performed: Fluoroscopy time in seconds: Number of Exposures: Contrast Agent in ml: Method of Administration: REPORT SIGNATURE ON FILE Reported By: Jeff Jansen DO <Electronically signed by Jeff Jansen DO> 03/28/21 1204 Dictation Date/Time: 03/27/21 1404 Transcribed Date/Time: 03/28/21 102 Senior Manufacturing Test Engineer: DAVE Name Value Range Interpretation Code Description Data Cindy rce(s) Supporting Document(s) ID Date Data Source [id number] 03/28/2021 10:17:00 AM EDT [facility] Imaging Services Department Imaging Report [address] [place] [id number] %(RAD)RES..mtdd.print.filter("line") Name: MICHELET VÁZQUEZ : 1985 Age/Sex: 35F Ordering Provider: Cody Crisostomo MD Med Rec #: [id number] Reg Status: [facility] Room #: Date of Service: 03/27/21 Report Number: [id number] cc:Josse Mills MD Send Report To: [id number] XRP/XR T Spine 3 View Reason for exam: pain FINDINGS: Normal kyphosis. No scoliosis. No fracture. Pedicles intact. Discheight preserved. Ribs unremarkable. IMPRESSION: No fracture. Normal alignment. No significant degenerative c hange. Time portable performed: Fluoroscopy time in seconds: Number of Exposures: Contrast Agent in ml: Method of Administration: REPORT SIGNATURE ON FILE Reported By: Jeff Jansen DO <Electronically signed by Jeff Jansen DO> 03/28/21 1204 Dictation Date/Time: 03/27/21 1404 Transcribed Date/Time: 03/28/21 1017 Senior Manufacturing Test Engineer: DAVE Name Value Range Interpretation Code Description Data Cindy rce(s) Supporting Document(s) ID Date Data Source [id number] 04/01/2021 05:05:00 PM EDT [facility] Name Value Range Interpretation Code Description Data Cindy rce(s) Supporting Document(s) HPV Detection,High Risk result Negative N ormal (applies to non-numeric results) [facility] Test Performed By: [facility] [address] [place] [address] Director: Gaby Trevino MD . No E6 or E7 mRNA is detected from HPV types 16,18,31,33,35,39,45,51,52,56,58,59,66, and 68 by nucleic acid amplification. ID Date Data Source [id number] 04/01/2021 04:36:00 PM EDT [facility] Name Value Range Interpretation Code Description Data Cindy rce(s) Supporting Document(s) HPV Detection,High Risk Types Negative No rmal (applies to non-numeric results) [facility] Test Performed By: [facility] [address] [place] [address] Director: Gaby Trevino MD . No E6 or E7 mRNA is detected from HPV types 16,18,31,33,35,39,45,51,52,56,58,59,66, and 68 by nucleic acid amplification. ID Date Data Source [id number] 03/31/2021 09:31:00 PM EDT [facility] CARPENTER APPRENTICE TEST TO BE ORDERED: PAP and HPV (HR )LAST MENSTRUAL PERIOD 01/29/21SOURCE OF SPECIMEN Endo/ExocxCLINICAL FINDINGS normal examCLINICAL DIAGNOSIS Screening, low risk (cx) Name Value Range Interpretation Code Description Data Cindy rce(s) Supporting Document(s) Cytology Order CARPENTER APPRENTICE Pap result LAB SendOut No rmal (applies to non-numeric results) [facility] ID Date Data Source [id number] 03/31/2021 07:47:00 PM EDT [facility] Name Value Range Interpretation Code Description Data Cindy rce(s) Supporting Document(s) ID Date Data Source [id number] 03/08/2021 03:38:00 PM EDT [facility] Name Value Range Interpretation Code Description Data Cindy rce(s) Supporting Document(s) Respiratory specimen severe acute respir atory syndrome coronavirus 2 (SARS-CoV-2) RNA Negative (qualifier value) [facility] This lab was [facility] and reported by . ID Date Data Source [id number] 03/09/2021 02:41:00 PM EDT [facility] FAX TO [phone] Name Value Range Interpretation Code Description Data Cindy rce(s) Supporting Document(s) SARS-CoV-2 RNA INHOUSE Negative Normal (applies to non-n umeric results) [facility] THIS IS A STATE REPORTABLE COMMUNICABLE DISEASE. Testing was performed using the [employer] COVID-19 MDx Assay. This test has been authorized by FDA under an (Emergency Use Authorization) EUA for use by authorized laboratories for individuals who are suspected of COVID-19 by their healthcare provider. This test is only authorized for the duration of the declaration that circumstances exist justifying the authorization of emergency use of in vitro diagnostic tests for detection and/or diagnosis of SARS-CoV-2. Methodology: Endpoint RT-PCR. Fact sheets for this EUA assay can be found at the following links: Providers: https://www.fda.gov/media/727551/download Patients : https://www.fda.gov/media/928598/download Negative results do not preclude SARS-CoV-2 infection and should not be used as the sole basis for patient management decisions. Negative results must be combined with clinical observations,patient history, and epidemiological information. ID Date Data Source [id number] 02/09/2021 12:09:18 PM EDT [facility]: Michelet NuñezhanDOB: 1985Provider: Teodoro Bui: 02/09/2021 Reason For VisitMichelet Vázquez is here today for Bilateral hand and elbows. Patient is seen at the request of PCP. Michelet has not had the Covid vaccine. Michelet Vázquez is a new patient and Michelet Vázquez is here for a second opinion. previously seeing Ortho in [place]. Michelet complains of numbness/tingling in all fingers. She complains of lacking strength in both arms. She states Right side symptoms worse. Other DOI/DOO: No injury- onset 5-6 years. The patient's pain is managed by Dr. Mirza. ([facility]). Patient is working at this time at regular duty. Plan 1. X-Ray I Elbow - 2 views (XRays were ordered, obtained and interpreted today in the office. Indication: pain/dysfunction.); Status:Complete; Done: [id number] Perform:SOS05; Due:[id number]; Last Updated By:Dru Jackson; 02/09/2021 10:43:16 AM;Ordered; For:Pain of both elbows; Ordered By:Teodoro Bui;Laterality: : Bilateral 2. X- Ray I Hand - 3 views (XRays were ordered, obtained and interpreted today in the office. Indication: pain/dysfunction.); Status:Complete; Done: 09Feb2021 Perform:SOS05; Due:[id number]; Last Updated By:Dru Jackson; 02/09/2021 10:43:16 AM;Ordered; For:Pain in both hands; Ordered By:Teodoro Bui;Laterality: : Bilateral HISTORY: The patient reports that she's had progressive discomfort in her right upper extremity over the last 14 years, never given any firm answers, despite multiple medical workups previously, including cervical spine as well as peripheral arm workup, but with aching discomfort and also numbness in her right side, worse with repetitive use, occasional snapping of her scapula. No previous traumas or injuries to it, for her problems. She controls her scapula motion by position, but does ache and occasionally once every couple of months will cause a sharp pain that does cause more significant discomfort. She notes numbness in her hand, greatest to the middle ring and small fingers, on the right side only, and does seem to be worse when her elbow is bent. She sleeps in a recliner with her elbow straight. 50% of her symptoms are below the elbow, but aching discomfort into the clavicle shoulder and proximal arm reported as well. She does take chronic oxycodone, given by her primary care physician, who is she states just tries to cover up her pain and never giving her any answers. She's had cervical workup and was told it is not her neck. 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 The patient's body habitus is approximately normal weight. The patient is oriented to person, place and time. The patient's mood is appropriate to situation. The patient's coordination is normal. Well muscled bilaterally.Mild dynamic right scapular weighing of the right scapula, but otherwise full overhead abduction without difficulties and scapular weighing overall fairly mild and not fixed. Otherwise, bilateral upper extremities show no deformities, no skin lesions and full range of motion of elbows, wrists and hands without significant discomfort. The patient is neurovascularly intact to light touch and has brisk capillary refill to all digits. There are no signs of disuse. There are no dystrophic changes. There is no allodynia. There are no skin changes. No significant irritability with Tinel's testing over the wrist or elbow. Symptomatic worsening of symptoms with arm abducted overhead, but no obvious obliteration of pulses.X-RAYS: X-rays were visualized, and interpreted in the office today for diagnostic purposes of the bilateral elbow, hand, wrist. Views: AP, Lateral and oblique. The x-rays reveal normal alignment, and normal bony ossification. There is no fracture, dislocation, or subluxation.= ASSESSMENT/PLAN: -Chronic right arm pain, numbness, weakness beginning approximately 2004, no injuriesRight mild dynamic scapular weighingPrevious cervical workup, mild degenerative changes the cervical spineNerve studies showing overall minimal peripheral nerve compression, median nerve motor latencies 3.5 ms on the left, 3.8 ms on the right, ulnar nerve conduction velocities 53 m/s bilaterally.-[place] does take chronic oxycodone for discomfort throughout her bodyI am certainly not convinced that a peripheral nerve decompression of her carpal tunnel and cubital tunnel will help her symptoms, although this could potentially be considered. Her nerve studies are essentially equal bilaterally, her symptoms are primarily just on the right side, where she does have some scapular winging that is dynamically corrected but overall has been livable intolerable for 14 years.I think it is reasonable to see if there is any sort of possibility that this is from a thoracic outlet syndrome, and I like to refer her to Dr. Johnson, to see what he thinks. If he does not have any firm believe that this is the cause of her problems, release of her carpal tunnel and cubital tunnel could certainly be undertaken, although with no guarantee that it would help her symptoms. She'll follow-up with me after his evaluation.The patient was provided with my office contact information with telephone numbers. Should there be any concerns or change in symptoms, for which the patient would like to see me again sooner, our office may be contacted to be seen at any point. Work / School NoteThe percentage of temporary impairment is 0%. The patient is working at this time. DisclaimersThis document was dictated and electronically signed using [employer] software. A reasonable attempt at proof reading has been made to minimize errors. Please call with any questions. Signatures Electronically signed by : Teodoro Bui M.D.; Feb 09 2021 12:09PM EST (Author) Name Value Range Interpretation Code Description Data Cindy rce(s) Supporting Document(s) ID Date Data Source [id number] 03/12/2020 02:45:00 PM EDT [facility] [address] [address] [phone] NAME SEX PT STATUS ACCOUNT NUMBER MICHELET VÁZQUEZ REG REF [id number] ORDERING PHYSICIAN LOCATION [id number] ATTENDING PHYSICIAN DATE OF DATE OF EXAM/TIME JEIMY JACKSON 1985 03/11/20 / 1517 TYPE / EXAM CT Maxillofacial area w/o cont REASON FOR EXAM CHRONIC PANSINUSITIS MICHELET VÁZQUEZ [id number] 1985 ADDENDUM Clinical History/Indication for Exam: VERTIGO Addendum: Correction: Nasal septum is deviated to the right by 5 mm. Automatic exposure control was used as a dose lowering technique. REPORT SIGNATURE ON FILE 03/12/2020 (14:46 Eastern Time ) Signed by: Carlos Jones MD, PhD. Addendum Reported By Carlos Jones MD on 03/12/20 1446 Signed By Carlos Jones MD on 03/12/20 1446 Trans Dt/Tm: Trans by: MEDQ [p pg] Clinical History/Indication for Exam: VERTIGO CT SINUSES WITHOUT INTRAVENOUS CONTRAST INDICATION: VERTIGO TECHNIQUE: Computed tomography images of the maxillofacial sinuses without intravenous contrast. Sagittal and coronal reformatted images were created and reviewed. This CT exam was performed using one or more of the following dose reduction techniques: automated exposure control, adjustment of the mA and/or kV according to patient size, and/or use of iterative reconstruction technique. COMPARISON: No relevant prior studies available. FINDINGS: Maxillary sinuses: Clear. Ostiomeatal units are clear. Sphenoid sinuses: Clear. Sphenoethmoidal recesses are clear. Frontal sinuses: Clear. Frontoethmoidal recesses are clear. Ethmoid air cells: Clear. Nasal cavity/septum: Nasal cavities are clear. Nasal turbinates are unremarkable. Nasopharynx is clear. Nasal septum is midline. Mastoid air cells: Clear. Bones/joints: No acute fracture. IMPRESSION: Unremarkable CT of the sinuses. Automatic exposure control was used as a dose lowering technique. REPORT SIGNATURE ON FILE 03/12/2020 (14:45 Eastern Time ) Signed by: Carlos Jones MD, PhD. Reported By Carlos Jones MD on 03/12/20 1445 Signed By Carlos Jones MD on 03/12/20 1445 Date Time CC: Carlos Jones MD; JEIMY JACKSON MD Techn: CHANDLER Trans Dt/Tm: Trans by: DT Prt Dt/Tm: 1556-1847: Total DLP = 56.00 mGy-cm 7779-2094: Total Radiation Dose = 0.1736 mSv Lifetime Dose: 0.1736 mSv Name Value Range Interpretation Code Description Data Cindy rce(s) Supporting Document(s) Procedure Social History No Information Vital Signs ID Date Data Source UNK Name Value Range Interpretation Code Description Data Source(s) Systolic blood pressure 128 mm[Hg] 128 mm[Hg] M EDENT ([facility], [facility]) Diastolic blood pressure 84 mm[Hg] 84 mm[Hg] MEDENT ([facility], [facility]) Heart rate 70 /min 70 /min MEDENT ([facility], [facility]) Respiratory rate 14 /min 14 /min [facility] ( [facility]) Oxygen saturation in Arterial blood by Pulse oximetry 98 % 98 % MEDENT ([facility]) Body temperature 98.3 [degF] 98.3 [degF] MEDENT ([facility]) Body weight 160.00 [lb_av] 160.00 [lb_av] MEDEN T ([facility], [facility]) Body height 68 [in_i] 68 [in_i] MEDENT ([facility]) 5'8" Body mass index (BMI) [Ratio] 24.3 kg/m2 24.3 k g/m2 [facility] ([facility]) ID Date Data Source [id number] 04/27/2021 07:28:00 PM EST [facility] Name Value Range Interpretation Code Description Data Source(s) Weight Measurement Method 8 8 [facility] Weight 2240 2240 [facility] pital Temperature Source 7 7 [facility] Temperature 97.7 97.7 [facility] spital Respiratory Effort 1 1 [facility] Respiratory Rate 20 20 [facility] Pulse Assessment Method 4 4 [facility] Pulse Rate 69 69 [facility] 68 68 [facility] 130/92 130/92 [facility] ID Date Data Source [id number] 03/29/2021 08:27:00 AM EDT [facility] Name Value Range Interpretation Code Description Data Source(s) Weight Measurement Method 8 8 [facility] Weight 2320 2320 [facility] pital Temperature Source 3 3 [facility] Temperature 98.2 98.2 [facility] spital Respiratory Effort 1 1 [facility] Respiratory Rate 16 16 [facility] Pulse Assessment Method 4 4 [facility] Pulse Rate 84 84 [facility]ital Height 68 68 [facility] Pressure 132/74 132/74 [facility] Weight Measurement Method 8 8 [facility] Weight 2320 2320 [facility] pital Temperature Source 3 3 [facility] Temperature 98.1 98.1 [place] [facility] Respiratory Effort 1 1 [facility] Respiratory Rate 18 18 [facility] Pulse Assessment Method 4 4 [facility] Pulse Rate 82 82 [facility] pital Height 68 68 [facility] pital Blood Pressure 128/79 128/79 [facility] Weight Measurement Method 8 8 [facility] Weight 2320 2320 [facility] pital Temperature Source 3 3 [facility] Temperature 97.9 97.9 [place] [facility] Respiratory Effort 1 1 [facility] Respiratory Rate 18 18 [facility] Pulse Assessment Method 4 4 [facility] Pulse Rate 71 71 [facility] pital Height 68 68 [facility] pital Blood Pressure 131/93 131/93 [facility] ID Date Data Source [id number] 03/28/2021 03:19:00 AM EDT [place] [facility] Name Value Range Interpretation Code Description Data Source(s) Weight Measurement Method 8 8 [facility] Weight 2320 2320 [facility] pital Temperature Source 3 3 [facility] Temperature 98.0 98.0 [place] [facility] Respiratory Effort 1 1 [facility] Respiratory Rate 20 20 [facility] Pulse Assessment Method 4 4 [facility] Pulse Rate 72 72 [facility] pital Height 68 68 [facility] pital Blood Pressure 131/84 131/84 [facility] Weight Measurement Method 8 8 [facility] Weight 2320 2320 [facility] pital Temperature Source 3 3 [facility] Temperature 98.0 98.0 [place] [facility] Respiratory Effort 1 1 [facility] Respiratory Rate 20 20 [facility] Pulse Assessment Method 4 4 [facility] Pulse Rate 72 72 [facility] pital Height 68 68 [facility] pital Blood Pressure 131/84 131/84 [facility] Weight Measurement Method 8 8 [facility] Weight 2320 2320 [facility] pital Temperature Source 3 3 [facility] Temperature 98.0 98.0 [facility] spital Respiratory Effort 1 1 [facility] Respiratory Rate 20 20 [facility] Pulse Assessment Method 4 4 [facility] Pulse Rate 72 72 [facility] Height 68 68 [facility] Blood Pressure 131/84 131/84 [facility]
[2021-04-28] MEDS ORDERED: NORCO, ANEXSIA 5/325MG TABLET (HYDROcodone/ACETAMINOPHEN) PO ONE (15:35)
--- OUTSIDE RECORDS SUMMARY | 2021-04-28 16:17 | CCD ---
Author Author [facility] Organization [facility] Address Unknown Phone Unavailable Care Team Providers Care On Site Nurse Name Role Phone Vincenzo Zamorano MD Unavailable Unavailable Vincenzo Zamorano MD Unavailable Unavailable Vincenzo Zamorano MD Unavailable Unavailable Vincenzo Zamorano MD Unavailable Unavailable Vincenzo Zamorano MD Unavailable Unavailable Vincenzo Zamorano MD Unavailable Unavailable Vincenzo Zamorano MD Unavailable Unavailable Vincenzo Zamorano MD Unavailable Unavailable Vincenzo Zamorano MD Unavailable Unavailable Vincenzo Zamorano MD Unavailable Unavailable Vincenzo Zamorano MD Unavailable Unavailable Vincenzo Zamorano MD Unavailable Vnicenzo Mo MD Unavailable Unavailable Vincenzo Zamorano MD Unavailable Unavailable Vincenzo Zamorano MD Unavailable Unavailable Chahfe, Vincenzo Tye FITZGERALD Unavailable Unavailable Chahfe, Vincenzo Tye MD Unavailable Unavailable Chahfe, Vincenzoszuy Gamble MD Unavailable Unavailable Chahfe, Vincenzo Tye [...] Josse Unavailable Unavailable María F Brown, F INCLINOMETER TESTER INCLINOMETER TESTER Unavailable Unavailable María F Brown, F INCLINOMETER TESTER INCLINOMETER TESTER Unavailable Unavailable ANTON BUI MD Unavailable Unavailable [...] Unavailable ANTON BUI MD Unavailable Unavailable ANTON BIU MD Unavailable Unavailable ANTON BUI MD Unavailable [...] Unavailable RAMYAANTON ROBB MD Unavailable Unavailable RAMYAANTON RBOB MD Unavailable Unavailable RAMYAANTON ROBB MD Unavailable [...] Marisabel Anny PA Unavailable Unavailable Capone, Marisabel Nany PA Unavailable Unavailable Capone, Marisabel Anny PA Unavailable Unavailable Elsie Can MD Unavailable Unavailable Elsie Can MD Unavailable Unavailable BROWN, CR MARÍA SMELTER OPERATOR Unavailable Unavailable BROWN, CR MARÍA SMELTER OPERATOR Unavailable Unavailable BROWN, CR MARÍA SMELTER OPERATOR Unavailable Unavailable BROWN, CR MARÍA SMELTER OPERATOR Unavailable Unavailable BROWN, CR MARÍA SMELTER OPERATOR Unavailable Unavailable BROWN, CR MARÍA SMELTER OPERATOR Unavailable Unavailable BROWN, CR MARÍA SMELTER OPERATOR Unavailable Unavailable BROWN, CR MARÍA SMELTER OPERATOR Unavailable Unavailable BROWN, CR MARÍA SMELTER OPERATOR Unavailable Unavailable BROWN, CR MARÍA SMELTER OPERATOR Unavailable Unavailable BROWN, CR MARÍA SMELTER OPERATOR Unavailable Unavailable BROWN, CR MARÍA SMELTER OPERATOR Unavailable Unavailable BROWN, CR MARÍA SMELTER OPERATOR Unavailable Unavailable BROWN, CR MARÍA SMELTER OPERATOR Unavailable Unavailable BROWN, CR MARÍA SMELTER OPERATOR Unavailable Unavailable BROWN, CR MARÍA SMELTER OPERATOR Unavailable Unavailable BROWN, CR MARÍA SMELTER OPERATOR Unavailable Unavailable BROWN, CR MARÍA SMELTER OPERATOR Unavailable Unavailable BROWN, CR MARÍA SMELTER OPERATOR Unavailable Unavailable BROWN, CR MARÍA SMELTER OPERATOR Unavailable Unavailable BROWN, CR MARÍA SMELTER OPERATOR Unavailable Unavailable BROWN, CR MARÍA SMELTER OPERATOR Unavailable Unavailable BROWN, CR MARÍA SMELTER OPERATOR Unavailable Unavailable BROWN, CR MARÍA SMELTER OPERATOR Unavailable Unavailable BROWN, CR MARÍA SMELTER OPERATOR Unavailable Unavailable BROWN, CR MARÍA SMELTER OPERATOR Unavailable Unavailable BROWN, CR MARÍA SMELTER OPERATOR Unavailable Unavailable BROWN, CR MARÍA SMELTER OPERATOR Unavailable Unavailable BROWN, CR MARÍA SMELTER OPERATOR Unavailable Unavailable BROWN, CR MARÍA SMELTER OPERATOR Unavailable Unavailable BROWN, CR MARÍA SMELTER OPERATOR Unavailable Unavailable BROWN, CR MARÍA SMELTER OPERATOR Unavailable Unavailable BROWN, CR MARÍA SMELTER OPERATOR Unavailable Unavailable BROWN, CR MARÍA SMELTER OPERATOR Unavailable Unavailable BROWN, CR MARÍA SMELTER OPERATOR Unavailable Unavailable BROWN, CR MARÍA SMELTER OPERATOR Unavailable Unavailable BROWN, CR MARÍA SMELTER OPERATOR Unavailable Unavailable BROWN, CR MARÍA SMELTER OPERATOR Unavailable Unavailable BROWN, CR MARÍA SMELTER OPERATOR Unavailable Unavailable BROWN, CR MARÍA SMELTER OPERATOR Unavailable Unavailable Re-disclosure Warning The records that [...] is protected by Article 27-F of the [facility] Public Health law. If you continue you may have access to information: Regarding HIV / AIDS; Provided by facilities licensed or operated by the [facility] Office of Mental Health; or Provided by the [facility] Office for People With Developmental Disabilities. If such information is present, then the following [facility] mandated warning applies: This information has been [...] law may result in a fine or mcfp sentence or both. A general authorization for the release of medical or other information is NOT sufficient authorization for further disc losure. Allergies and Adverse Reactions Type Description Substance Reaction Status Data Source(s ) Drug allergy Drug allergy ibuprofen (From Motrin) [facility] Drug allergy Drug allergy Latex, Natural Rubber Rash [facility] Ibuprofen Ibuprofen [facility] ([facility]) Encounters Encounter Providers Location Date Indications Data Source(s ) Emergency Attender: Elsie Can MD ED-ED 021 06:33:00 PM EST - 04/27/2021 07:27:00 PM EST FEELS LIKE SHES GOING TO HURT HERSELF [facility] FEELS LIKE SHES GOING TO HURT HERSELF Patient discharged. Outpatient Attender: MARÍA LOREDO NP CPSCAORT-CPSGNOBG 09/2020 01:00:00 PM EDT - 04/14/2021 01:01:00 PM EDT [facility] Patient discharged. Outpatient Attender: MARÍA LOREDO NP ED-IMAG 2020 11:06:00 AM EDT - 04/08/2021 11:07:00 AM EDT PELVIC PAIN [facility] PELVIC PAIN Patient discharged. Outpatient Attender: Atul Mathewdmitter: Atul Savage [address] [place] [address]-[facility] 04/01/2021 10:00:[address] [facility] ([facility]) Patient admitted. Emergency Attender: Cody Crisostomo MDAttender: Cody Suarez MD ED-ED 03/27/2021 12:49:00 PM EDT - 03/27/2021 02:18:00 PM EDT BACK AND HIP PAIN [facility] BACK AND HIP PAIN Patient discharged. Emergency Attender: Cody Crisostomo MD ED-ED 11:34:00 AM EDT - 03/27/2021 12:00:00 PM EDT PAIN IN BACK AND R HIP [facility] PAIN IN BACK AND R HIP Patient discharged. Outpatient Attender: DARYL CANALES MD CPSCAORT-CPSCAORT 03/26/2021 08:05:00 AM EDT - 03/26/2021 08:06:00 AM EDT [facility] Patient discharged. Outpatient Attender: KIMBER Loredo FNPAttender: MARÍA LOREDO NP ED-LAB 03/25/2021 01:05:00 PM EDT - 03/25/2021 01:06:00 PM EDT Z124 [facility] Z124 Patient discharged. Outpatient Attender: KIMBER Loredo FNPAttender : MARÍA LOREDO NP CPSCAORT-LABEJN 03/25/2021 10:20:00 AM EDT Z12.4 [facility] Z12.4 Outpatient Attender: MARÍA LOREDO NP CPSCAORT-CPSGNOBG 03/11 09:35:00 AM EDT - 03/25/2021 09:36:00 AM EDT [facility] Patient discharged. Outpatient Attender: La Handy MD CPSJAROCHO-CPSCARAFAL 11:20:00 AM EDT - 03/10/2021 11:21:00 AM EDT [facility] Patient discharged. Outpatient Attender: La Handy MD ED-LABCOVGH 02/10 07:02:00 PM EDT - 03/08/2021 07:03:00 PM EDT Z01.812 [facility] Z01.812 Patient discharged. Outpatient Attender: Josse SIMS-CPSGNIMD 021 11:22:00 AM EDT - 02/28/2021 11:23:00 AM EDT [facility] Patient discharged. Outpatient Attender: JUANITO BUI MDReferrer: Josse Mills 02/09/2021 12:09:18 PM EDT [facility] Rec[facility] Patient Referrer: Josse Mills 02/09/2021 10:33: 53 AM EDT [facility] Patient Referrer: Josse Mills 02/09/2021 10:22: 54 AM EDT [facility] Patient Referrer: Josse Mills 12/31/2020 12:25: 36 PM EDT [facility] Outpatient Attender: Josse Mills CPSCAORT-CPSGNIMD 021 04:01:00 PM EDT - 12/09/2020 04:02:00 PM EDT [facility] Patient discharged. Outpatient Attender: Josse Mills CPSCAORT-CPSGNIMD 021 08:18:00 AM EDT - 10/25/2020 08:19:00 AM EDT [facility] Patient discharged. Outpatient Attender: ENRIQUETA BOLANOS MD Main office - [facility] 08/16/2020 02:00:00 PM EST [facility] ([facility]) Outpatient Attender: ENRIQUETA BOLANOS MD Main office - [facility] 07/06/2020 11:30:00 AM EST [facility] ([facility]) Outpatient Attender: Josse Gene CPSCAORT-CPSGNIMD 021 02:40:00 PM EST - 06/24/2020 02:41:00 PM EST [facility] Patient discharged. Outpatient Attender: Anny Zhao alberto 03/17/2020 03:45:00 PM EDT [facility] ([facility] Outpatient Attender: Tye Zamorano MD 03/11/2020 02:34:00 P M EDT SINUSITIS,R42 [facility] SINUSITIS,R42 Immunizations Vaccine Date Status Description Data Source(s) COVID-19 VACCINE Moderna 04/24/2021 12:00:00 AM EST completed [facility] Vaccine Series Complete: NOThis Data was Submitted to [facility] Via [facility]. TB Skin test is not vaccine. 03/17/2020 02:42:00 PM EDT completed [facility] (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 [id number] [facility] PL [id number] 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 [id number] MEDICAID [id number] 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 B [id number] [facility] [id number] SP [id number] [facility] [id number] SP [id number] [facility] [id number] SP [id number] MEDICAID [id number] SP [id number] P [facility]ALTH [facility] O [id number] S [id number] [facility] COMM PLAN [id number] 18 [id number] MEDICAID CLINIC -PHYSICIAN [id number] 1 [id number] MEDICAID -CLINIC [id number] MEDICAID S [id number] S [id number] [facility](MCAID) P [id number] S [id number] SELF PAY UNAVAILABLE UNAVAILA BLE AMERICHOICE UNHC XIX HMO -RECURRING [id number] [facility] BLUE SHIELD-RECURRING [id number] [facility] FAMILY HEALTH PLUS -O/P [id number] [facility] PLAN [facility] [id number] [facility] [id number] 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 [id number] Problems, Conditions, and Diagnoses Code Display Name Description Problem Type Effective Dates Data Source(s) R10.32 Left lower quadrant pain LEFT LOWER QUADRANT PAIN Diag nosis 04/14/2021 01:00:00 PM EDT [facility] R10.2 Pelvic and perineal pain PELVIC AND PERINEAL PAIN Diag nosis 04/14/2021 01:00:00 PM EDT [facility] Z30.013 Encounter for initial prescription of in jectable contraceptive ENCOUNTER FOR INITIAL PRESCRIPTION OF INJECTABLE CONTRACEP Diagnosis 09/2020 01:00:00 PM EDT [facility] G56.01 Carpal tunnel syndrome, right upper limb Carpal tunnel syndrome, right upper limb Diagnosis 04/01/2021 12:00:[address] [facility] ([facility]) G56.20 Lesion of ulnar nerve, unspecified upper limb Lesion of ulnar nerve, unspecified upper limb Diagnosis 04/01/2021 12:00:[address] [facility] ([facility]) H40.9 Unspecified glaucoma Unspecified glaucoma Diagnosis 04/01/2021 12:00:[address] [facility] ([facility]) J45.909 Unspecified asthma, uncomplicated Unspecified as thma, uncomplicated Diagnosis 04/01/2021 12:00:[address] [facility] ([facility] [place] [facility] M15.4 Erosive (osteo)arthritis Erosive (osteo)arthritis Diag nosis 04/01/2021 12:00:[address] [facility] ([facility]) M50.30 Other cervical disc degeneration, unspec ified cervical region Other cervical disc degeneration, unspecified cervical region Diagnosis 04/01/2021 12:00:[address] [facility] ([facility]) N83.209 Unspecified ovarian cyst, unspecified si de Unspecified ovarian cyst, unspecified side Diagnosis 04/01/2021 12:00:[address] [facility] ([facility]) F33.1 Major depressive disorder, recurrent, mo derate Major depressive disorder, Recurrent episode, Moderate Diagnosis 04/01/2021 12:00:[address] [facility] ([facility]) F43.10 Post-traumatic stress disorder, unspecif ied Posttraumatic stress disorder Diagnosis 04/01/2021 12:00:[address] [facility] ([facility]) M25.559 Pain in unspecified hip PAIN IN UNSPECIFIED HIP Diagno sis 03/27/2021 12:49:00 PM [facility] M54.9 Dorsalgia, unspecified DORSALGIA, UNSPECIFIED Diagnosi s 03/27/2021 12:49:00 PM [facility] G56.21 Lesion of ulnar nerve, right upper limb LESION OF ULNAR NERVE, RIGHT UPPER LIMB Diagnosis 03/26/2021 08:05:00 AM T [facility] G56.01 Carpal tunnel syndrome, right upper limb CARPAL TUNNEL SYNDROME, RIGHT UPPER LIMB Diagnosis 03/26/2021 08:05:00 AM [facility] M77.8 Other enthesopathies, not elsewhere clas sified OTHER ENTHESOPATHIES, NOT ELSEWHERE CLASSIFIED Diagnosis 03/26/2021 08:05:[address] [facility] M67.431 Ganglion, right wrist GANGLION, RIGHT WRIST Diagnosis 03/26/2021 08:05:00 AM [facility] M25.521 Pain in right elbow PAIN IN RIGHT ELBOW Diagnosis 1 08:05:00 AM [facility] Z11.51 Encounter for screening for human papill omavirus (HPV) ENCOUNTER FOR SCREENING FOR HUMAN PAPILLOMAVIRUS (HPV) Diagnosis 03/25/2021 01:05:00 PM [facility] Z12.4 Encounter for screening for malignant ne oplasm of cervix ENCOUNTER FOR SCREENING FOR MALIGNANT NEOPLASM OF CERVIX Diagnosis 03/25/2021 01:05: 00 PM [facility] N91.2 Amenorrhea, unspecified AMENORRHEA, UNSPECIFIED Diagno sis 03/25/2021 09:35:00 AM [facility] Z12.4 Encounter for screening for malignant ne oplasm of cervix ENCOUNTER FOR SCREENING FOR MALIGNANT NEOPLASM OF CERVIX Diagnosis 03/25/2021 09:35: 00 AM [facility] Z12.39 Encounter for other screening for malign ant neoplasm of breast ENCOUNTER FOR OTH SCREENING FOR MALIGNANT NEOPLASM OF BREAST Diagnosis 09:35:00 AM [facility] Z01.419 Encounter for gynecological examination (general) (routine) without abnormal findings ENCNTR FOR CROP ROLLER EXAM (GENERAL) (ROUTINE) W/O ABN FINDIN GS Diagnosis 03/25/2021 09:35:00 AM [facility] F17.200 Nicotine dependence, unspecified, uncomp licated NICOTINE DEPENDENCE, UNSPECIFIED, UNCOMPLICATED Diagnosis 03/10/2021 11:20:00 AM [facility] R09.81 Nasal congestion NASAL CONGESTION Diagnosis 03/10/2021 11 :20:00 AM [facility] Z86.69 Personal history of other di seases of the nervous system and sense organs PERSONAL HISTORY OF DIS OF THE NERVOUS SYS AND SENSE ORGANS Diagnosis 03/10/2021 11:20:00 AM [facility] Z78.9 Other specified health status OTHER SPECIFIED HEALTH S TATUS Diagnosis 03/10/2021 11:20:00 AM [facility] J34.3 Hypertrophy of nasal turbinates HYPERTROPHY OF NASAL T URBINATES Diagnosis 03/10/2021 11:20:00 AM [facility] J34.2 Deviated nasal septum DEVIATED NASAL SEPTUM Diagnosis 03/10/2021 11:20:00 AM [facility] M79.601 Pain in right arm PAIN IN RIGHT ARM Diagnosis 02/28 11:22:00 AM [facility] M51.9 Unspecified thoracic, thorac olumbar and lumbosacral intervertebral disc disorder UNSP THORACIC, THORACOLUM AND LUMBOSACR INTVRT DISC DISORDER Diagnosis 12/09/2020 04:01:00 PM [facility] R09.82 Postnasal drip POSTNASAL DRIP Diagnosis 10/25/2020 08:18: 00 AM [facility] L20.84 Intrinsic (allergic) eczema INTRINSIC (ALLERGIC) ECZEM A Diagnosis 10/25/2020 08:18:00 AM [facility] M25.511 Pain in right shoulder PAIN IN RIGHT SHOULDER Diagnosi s 10/25/2020 08:18:00 AM [facility] 241181 Occipital headache Occipital headache Problem 12:00:00 AM EST [facility] ([facility]) Surgeries/Procedures Procedure Description Date Indications Data Source(s) OFFICE OUTPATIENT VISIT 10 MINUTES OFFICE/OUTPATIENT VISIT E ST 04/14/2021 12:00:00 AM [facility] THERAPEUTIC PROPHYLACTIC/DX INJECTION SUBQ/IM THER/PROPH/PATTI G INJ SC/IM 04/14/2021 12:00:00 AM [facility] Injection, medroxyprogesterone acetate, 1 mg 12:00:00 AM [facility] RADEX WRIST COMPLETE MINIMUM 3 VIEWS X-RAY EXAM OF WRIST 12:00:00 AM [facility] RADEX ELBOW COMPLETE MINIMUM 3 VIEWS X-RAY EXAM OF ELBOW 12:00:00 AM [facility] 04180 HPV HIGH-RISK TYPES 03/25/2021 12:00:00 AM [facility] CYTP CERV/VAG AUTO THIN LAYER PREP MNL SCREEN CYTOPATH C/V T HIN LAYER 03/25/2021 12:00:00 AM [facility] PERIODIC PREVENTIVE MED EST PATIENT 18-39 YRS PREV VISIT EST AGE 18-39 03/25/2021 12:00:00 AM [facility] OFFICE OUTPATIENT VISIT 5 MINUTES OFFICE/OUTPATIENT VISIT ES T 03/10/2021 12:00:00 AM [facility] NASAL ENDOSCOPY DIAGNOSTIC UNI/BI SPX NASAL ENDOSCOPY DX 12:00:00 AM [facility] Magnetic Resonance Angiogtaphy Head W/O Contrast Material(S) 08/12/2020 12:00:00 AM EST [facility] ([facility]) Magnetic Resonance Angiogtaphy Head W/O Contrast Material(S) 08/12/2020 12:00:00 AM EST [facility] ([facility]) Magnetic Resonance Angiography Neck W/O Contrast Materials 08/12/2020 12:00:00 AM EST [facility] ([facility]) Magnetic Resonance Angiography Neck W/O Contrast Materials 08/12/2020 12:00:00 AM EST [facility] ([facility]) Results ID Date Data Source [id number] 04/09/2021 06:09:00 AM EDT [facility] Imaging Services Department Imaging Report [address], [place] [address] %(RAD)RES..mtdd.print.filter("line") Name: MICHELET VÁZQUEZ : 1985 Age/Sex: 35F Ordering Provider: KIMBER Lord Med Rec #: [id number] Reg Status: [facility] REF Room #: Date of Service: 04/08/21 Report Number: [id number] cc:KIMBER Lord; Josse Mills MD Send Report To: [id number] US/US Transvaginal Reason for exam: PELVIC PAIN [...] Date/Time: 04/08/21 1233 Transcribed Date/Time: 04/09/21 0609 Box Person: MARTHA Name Value Range Interpretation Code Description Data Cindy rce(s) Supporting Document(s) ID Date Data Source [id number] 03/27/2021 01:32:00 PM [facility] Name Value Range Interpretation Code Description Data Cindy rce(s) Supporting Document(s) HCG,Ur Negative Normal (applies to non-numeric results) [facility] ID Date Data Source [id number] 03/28/2021 10:23:00 AM [facility] Imaging Services Department Imaging Report [address] [place] [address] %(RAD)RES..mtdd.print.filter("line") Name: MICHELET VÁZQUEZ : 1985 Age/Sex: 35F Ordering Provider: Cody Crisostomo MD Med Rec #: [id number] Reg Status: [facility] Room #: Date of Service: 03/27/21 Report Number: [id number] cc:Josse Mills MD Send Report To: [id number] XRP/XR Hip Rt 2-3 Views Reason for [...] Date/Time: 03/27/21 1404 Transcribed Date/Time: 03/28/21 1023 Box Person: DAVE Name Value Range Interpretation Code Description Data Cindy rce(s) Supporting Document(s) ID Date Data Source [id number] 03/28/2021 10:21:00 AM EDT [facility] Imaging Services Department Imaging Report [address] [place] [address] %(RAD)RES..mtdd.print.filter("line") Name: MICHELET VÁZQUEZ : 1985 Age/Sex: 35F Ordering Provider: Cody Crisostomo MD Med Rec #: [id number] Reg Status: [facility] Room #: Date of Service: 03/27/21 Report Number: [id number] cc:Josse Mills MD Send Report To: [id number] XRP/XR L Spine Complete Reason for exam: [...] Date/Time: 03/27/21 1404 Transcribed Date/Time: 03/28/21 102 Box Person: DAVE Name Value Range Interpretation Code Description Data Cindy rce(s) Supporting Document(s) ID Date Data Source [id number] 03/28/2021 10:17:00 AM EDT [facility] Imaging Services Department Imaging Report [address] [place] [address] %(RAD)RES..mtdd.print.filter("line") Name: MICHELET VÁZQUEZ : 1985 Age/Sex: 35F Ordering Provider: Cody Crisostomo MD Med Rec #: [id number] Reg Status: [facility] Room #: Date of Service: 03/27/21 Report Number: [id number] cc:Josse Mills MD Send Report To: [id number] XRP/XR T Spine 3 View Reason for [...] Date/Time: 03/27/21 1404 Transcribed Date/Time: 03/28/21 1017 Box Person: DAVE Name Value Range Interpretation Code Description Data Cindy rce(s) Supporting Document(s) ID Date Data Source [id number] 04/01/2021 05:05:00 PM EDT [facility] Name Value Range Interpretation Code Description Data Cindy rce(s) Supporting Document(s) HPV Detection,High Risk result Negative N ormal (applies to non-numeric results) [facility] Test Performed By: [facility] [address] [place] [address] Director: Gaby Trevino MD . No E6 or E7 mRNA is detected from HPV types 16,18,31,33,35,39,45,51,52,56,58,59,66, and 68 by nucleic acid amplification. ID Date Data Source [id number] 04/01/2021 04:36:00 PM EDT [facility] Name Value Range Interpretation Code Description Data Cindy rce(s) Supporting Document(s) HPV Detection,High Risk Types Negative No rmal (applies to non-numeric results) [facility] Test Performed By: [facility] [address] [place] [address] Director: Gaby Trevino MD . No E6 or E7 mRNA is detected from HPV types 16,18,31,33,35,39,45,51,52,56,58,59,66, and 68 by nucleic acid amplification. ID Date Data Source [id number] 03/31/2021 09:31:00 PM EDT [facility] CROP ROLLER TEST TO BE ORDERED: PAP and HPV (HR )LAST MENSTRUAL PERIOD 01/29/21SOURCE OF SPECIMEN Endo/ExocxCLINICAL FINDINGS normal examCLINICAL DIAGNOSIS Screening, low risk (cx) Name Value Range Interpretation Code Description Data Cindy rce(s) Supporting Document(s) Cytology Order CROP ROLLER Pap result LAB SendOut No rmal (applies to non-numeric results) [facility] ID Date Data Source [id number] 03/31/2021 07:47:00 PM EDT [facility] Name Value Range Interpretation Code Description Data Cindy rce(s) Supporting Document(s) ID Date Data Source [id number] 03/08/2021 03:38:00 PM EDT [facility] Name Value Range Interpretation Code Description Data Cindy rce(s) Supporting Document(s) Respiratory specimen severe acute respir atory syndrome coronavirus 2 (SARS-CoV-2) RNA Negative (qualifier value) [facility] and reported by . ID Date Data Source [id number] 03/09/2021 02:41:00 PM EDT [facility] FAX TO [phone] Name Value Range Interpretation Code Description Data Cindy rce(s) Supporting Document(s) SARS-CoV-2 RNA INHOUSE Negative Normal (applies to non-n umeric results) [facility] THIS IS A STATE REPORTABLE COMMUNICABLE DISEASE. Testing was performed using the [employer] COVID-19 MDx Assay. This test has been [...] be found at the following links: Providers: https://www.fda.gov/media/155913/download Patients : https://www.fda.gov/media/204648/download Negative results do not preclude SARS-CoV-2 infection and should not be used as the sole basis for patient management decisions. Negative results must be combined with clinical observations,patient history, and epidemiological information. ID Date Data Source [id number] 02/09/2021 12:09:18 PM EDT [facility] PCName: Michelet NuñezhanDOB: 1985Provider: Teodoro Bui: 02/09/2021 Reason For VisitMichelet Vázquez is here today for Bilateral hand and elbows. Patient is seen at the request of PCP. Michelet has not had the Covid vaccine. Michelet Vázquez is a new patient and Michelet Vázquez is here for a second opinion. previously seeing Ortho in [place]. Michelet complains of numbness/tingling in all fingers. [...] in the office. Indication: pain/dysfunction.); Status:Complete; Done: [id number] Perform:SOS05; Due:[id number]; Last Updated By:Dru Jackson; 02/09/2021 10:43:16 AM;Ordered; For:Pain of both elbows; Ordered By:Teodoro Bui;Laterality: : Bilateral 2. X- Ray I Hand - 3 views (XRays were ordered, obtained and interpreted today in the office. Indication: pain/dysfunction.); Status:Complete; Done: 09Feb2021 Perform:SOS05; Due:[id number]; Last Updated By:Dru Jackson; 02/09/2021 10:43:16 AM;Ordered; [...] document was dictated and electronically signed using [employer] software. A reasonable attempt at proof reading has been made to minimize errors. Please call with any questions. Signatures Electronically signed by : Teodoro Bui M.D.; Feb 09 2021 12:09PM EST (Author) Name Value Range Interpretation Code Description Data Cindy rce(s) Supporting Document(s) ID Date Data Source [id number] 03/12/2020 02:45:00 PM EDT [facility] [address] [place] [address] [phone] NAME SEX PT STATUS ACCOUNT NUMBER MICHELET VÁZQUEZ REG REF [id number] ORDERING PHYSICIAN LOCATION MEDICAL RECORD NO. Tye [facility] [place] [id number] ATTENDING PHYSICIAN DATE OF DATE OF EXAM/TIME JEIMY JACKSON 1985 03/11/20 / 1517 TYPE / EXAM CT Maxillofacial area w/o cont REASON FOR EXAM CHRONIC PANSINUSITIS MICHELET VÁZQUEZ [id number] 1985 ADDENDUM Clinical History/Indication for Exam: VERTIGO [...] MD Techn: CHANDLER Trans Dt/Tm: Trans by: FLORI Prt Dt/Tm: [id number]: Total DLP = 56.00 mGy-cm [id number]: Total Radiation Dose = 0.1736 mSv Lifetime Dose: 0.1736 mSv Name Value Range Interpretation Code Description Data Cindy rce(s) Supporting Document(s) Procedure Social History No Information Vital Signs ID Date Data Source UNK Name Value Range Interpretation Code Description Data Source(s) Respiratory rate 14 /min 14 /min [facility] Oxygen saturation in Arterial blood by Pulse oximetry 98 % 98 % [facility] ([facility], [facility]) Body temperature 98.3 [degF] 98.3 [degF] MEDENT ([facility]) Body weight 160.00 [lb_av] 160.00 [lb_av] MEDEN T ([facility], [facility]) Body height 68 [in_i] 68 [in_i] MEDENT ([facility], [facility]) 5'8" Body mass index (BMI) [Ratio] 24.3 kg/m2 24.3 k g/m2 MEDENT ([facility], [facility]) Systolic blood pressure 128 mm[Hg] 128 mm[Hg] M EDENT ([facility], [facility]) Diastolic blood pressure 84 mm[Hg] 84 mm[Hg] MEDENT ([facility], [facility]) Heart rate 70 /min 70 /min [facility] ([facility], [facility]) ID Date Data Source [id number] 04/27/2021 07:28:00 PM EST [facility] Name Value Range Interpretation Code Description Data Source(s) Weight Measurement Method 8 8 [facility] Weight 2240 2240 [facility] pital Temperature Source 7 7 [facility] Temperature 97.7 97.7 [facility] spital Respiratory Effort 1 1 [facility] Respiratory Rate 20 20 [facility] Pulse Assessment Method 4 4 [facility] Pulse Rate 69 69 [facility] 130/92 130/92 [facility] ID Date Data Source [id number] 03/29/2021 08:27:00 AM EDT [facility] Name Value Range Interpretation Code Description Data Source(s) Weight Measurement Method 8 8 [facility] Weight 2320 2320 [facility] pital Temperature Source 3 3 [facility] Temperature 98.2 98.2 [facility] spital Respiratory Effort 1 1 [facility] Respiratory Rate 16 16 [facility] Pulse Assessment Method 4 4 [facility] Pulse Rate 84 84 [facility] 68 68 [facility] 132/74 132/74 [facility] Weight Measurement Method 8 8 [facility] Weight 2320 2320 [facility] pital Temperature Source 3 3 [facility] Temperature 98.1 98.1 [facility] Respiratory Effort 1 1 [facility] Respiratory Rate 18 18 [facility] Pulse Assessment Method 4 4 [facility] Pulse Rate 82 82 [facility] pital Height 68 68 [facility] pital Blood Pressure 128/79 128/79 [facility] Weight Measurement Method 8 8 [facility] Weight 2320 2320 [facility] pital Temperature Source 3 3 [facility] Temperature 97.9 97.9 [facility] Respiratory Effort 1 1 [facility] Respiratory Rate 18 18 [facility] Pulse Assessment Method 4 4 [facility] Pulse Rate 71 71 [facility] pital Height 68 68 [facility] pital Blood Pressure 131/93 131/93 [facility] ID Date Data Source [id number] 03/28/2021 03:19:00 AM EDT [facility] Name Value Range Interpretation Code Description Data Source(s) Weight Measurement Method 8 8 [facility] Weight 2320 2320 [facility] pital Temperature Source 3 3 [facility] Temperature 98.0 98.0 [facility] Respiratory Effort 1 1 [facility] Respiratory Rate 20 20 [facility] Pulse Assessment Method 4 4 [facility] Pulse Rate 72 72 [facility] pital Height 68 68 [facility] pital Blood Pressure 131/84 131/84 [facility] Weight Measurement Method 8 8 [facility] Weight 2320 2320 [facility] pital Temperature Source 3 3 [facility] Temperature 98.0 98.0 [facility] Respiratory Effort 1 1 [facility] Respiratory Rate 20 20 [facility] Pulse Assessment Method 4 4 [facility] Pulse Rate 72 72 [facility] pital Height 68 68 [facility] pital Blood Pressure 131/84 131/84 [facility] Weight Measurement Method 8 8 [facility] Weight 2320 2320 [facility] pital Temperature Source 3 3 [facility] Temperature 98.0 98.0 [facility] Respiratory Effort 1 1 [facility] Respiratory Rate 20 20 [facility] Pulse Assessment Method 4 4 [facility] Pulse Rate 72 72 [facility] Height 68 68 [facility] Blood Pressure 131/84 131/84 [facility]
[2021-04-28 16:24] LABS: HEMATOCRIT 46.8 % (36.0-47.0); HEMOGLOBIN 15.4 g/dl (12.0-15.5); MEAN CORPUSCULAR HEMOGLOBIN 31.6 pg (27.0-33.0); MEAN CORPUSCULAR HGB CONC 32.9 g/dl (32.0-36.5); MEAN CORPUSCULAR VOLUME 96.1 fl (80.0-96.0); PLATELET COUNT, AUTOMATED 350 10^3/uL (150-450); RED BLOOD COUNT 4.87 10^6/uL (4.00-5.40)
[2021-04-28] MEDS ORDERED: PERCOCET 5MG/325MG TAB PO ONE (16:45)
[2021-04-28] MEDS ORDERED: LORazepam 2 MG TAB PO STA (16:45)
[2021-04-28 16:53] LABS: AMPHETAMINES LEVEL URINE NEGATIVE (NEGATIVE); BARBITURATES URINE NEGATIVE (NEGATIVE); BENZODIAZEPINES URINE NEGATIVE (NEGATIVE); CANNABINOIDS URINE POSITIVE (NEGATIVE); COCAINE METABOLITE URINE NEGATIVE (NEGATIVE); METHADONE URINE NEGATIVE (NEGATIVE); OPIATES URINE NEGATIVE (NEGATIVE); PHENCYCLIDINE URINE NEGATIVE (NEGATIVE)
[2021-04-28 16:59] LABS: HCG, SERUM QUALITATIVE NEGATIVE (NEGATIVE)
[2021-04-28 17:03] LABS: ACETAMINOPHEN LEVEL < 2.0 UG/ML (10.0-30.0); ALT/SGPT 46 U/L (12-78); BILIRUBIN,DIRECT 0.1 MG/DL (0.0-0.2); BILIRUBIN,TOTAL 0.7 MG/DL (0.2-1.0); BLOOD UREA NITROGEN 19 MG/DL (7-18); CALCIUM LEVEL 10.7 MG/DL (8.5-10.1); CARBON DIOXIDE LEVEL 27 MEQ/L (21-32); CHLORIDE LEVEL 107 MEQ/L (98-107); CREATININE FOR GFR 1.04 MG/DL (0.55-1.30); ETHYL ALCOHOL (ETHANOL) < 0.003 % (0.000-0.010); GLOMERULAR FILTRATION RATE > 60.0 (>60); GLUCOSE, FASTING 82 MG/DL (70-100); SALICYLATE LEVEL 4.2 MG/DL (5.0-30.0); SODIUM LEVEL 141 MEQ/L (136-145); THYROID STIMULATING HORMONE 0.462 uIU/ML (0.358-3.740); TOTAL PROTEIN 8.8 GM/DL (6.4-8.2)
[2021-04-28] MEDS ORDERED: OLANZapine ORAL DISINTEGRATING TAB 5MG PO ONE ×2 (17:05→20:25)
[2021-04-28] MEDS ORDERED: LORazepam 2 MG TAB PO ONE (20:25)
[2021-04-29] MEDS ORDERED: PERCOCET 5MG/325MG TAB PO ONE (01:55)
[2021-04-29] MEDS: NICOTINE 7 MG/24 HR TRANSDERMAL TD SCH (09:00)
[2021-04-29] MEDS ORDERED: MOM 30ML SUSPENSION UDC PO PRN (11:35)
[2021-04-29] MEDS ORDERED: MAALOX 30 ML SUSP *UDC PO PRN (11:35)
[2021-04-29] MEDS ORDERED: ACETAMINOPHEN TAB 650MG DOSE (2X325MG) PO PRN (11:35)
[2021-04-29] MEDS ORDERED: traZODone 50 MG TAB PO PRN (11:35)
[2021-04-29 12:00] LABS: RSV AMPLIFICATION NEGATIVE (NEGATIVE)
--- OUTSIDE RECORDS SUMMARY | 2021-04-29 12:03 | CCD ---
Author Author [facility] Organization [facility] Address Unknown Phone Unavailable Care Team Providers Care Optical Instrument Specialist Name Role Phone Vincenzo Zamorano MD Unavailable [...] Vincenzo Tye FITZGERALD Unavailable Unavailable Chahfe, Vincenzo yTe MD Unavailable Unavailable Chahfe, Vincenzosuzy Gamble MD [...] Unavailable Chadianafe, Vincenzosuzy Gamble MD Unavailable Unavailable aMtheusfe, Vincenzo Tye FITZGERALD Unavailable Unavailable Matheusfe, Vincenzosuzy [...] Unavailable Unavailable Vincenzo Zamorano MD Unavailable Unavailable Vincezno Zamorano MD Unavailable Unavailable Vincenzo Zamorano MD [...] Unavailable Unavailable Rosemary Handy MD Unavailable Unavailable Roseamry Handy MD Unavailable Unavailable Rosemary Handy MD [...] Josse Unavailable Unavailable María F Brown, F EPIC MANAGER EPIC MANAGER Unavailable Unavailable María F Brown, F EPIC MANAGER EPIC MANAGER Unavailable Unavailable ANTON BUI MD Unavailable Unavailable [...] Unavailable CICI, ENRIQUETA MD Unavailable Unavailable CICI, ENRIQEUTA MD Unavailable Unavailable CICI, ENRIQUETA MD Unavailable Unavailable CICI, ENRIQUETA MD Unavailable Unavailable CICI, ENRIQUETA MD Unavailable Unavailable CICI, ENRIQUETA MD Unavailable Unavailable CICI, ENRIQUETA MD Unavailable Unavailable CICI, ENRIQUETA MD Unavailable Unavailable CICI, ENRIQUETA MD Unavailable Unavailable CICI, ENIRQUETA MD Unavailable Unavailable CICI, ENRIQUETA MD Unavailable [...] Can MD Unavailable Unavailable BROWN, CR MARÍA COURT LIAISON Unavailable Unavailable BROWN, CR MARÍA COURT LIAISON Unavailable Unavailable BROWN, CR MARÍA COURT LIAISON Unavailable Unavailable BROWN, CR MAR[address] COURT LIAISON Unavailable Unavailable BROWN, CR MAR[address] COURT LIAISON Unavailable Unavailable BROWN, CR MAR[address] LIAISON Unavailable Unavailable BROWN, CR [address] LIAISON Unavailable Unavailable BROWN, CR [address] LIAISON Unavailable Unavailable BROWN, CR [address] LIAISON Unavailable Unavailable BROWN, CR [address] LIAISON Unavailable Unavailable BROWN, CR [address] LIAISON Unavailable Unavailable BROWN, CR [address] LIAISON Unavailable Unavailable BROWN, CR [address] LIAISON Unavailable Unavailable BROWN, CR [address] LIAISON Unavailable Unavailable BROWN, CR [address] LIAISON Unavailable Unavailable BROWN, CR [address] LIAISON Unavailable Unavailable BROWN, CR [address] LIAISON Unavailable Unavailable BROWN, CR [address] LIAISON Unavailable Unavailable BROWN, CR [address] LIAISON Unavailable Unavailable BROWN, CR [address] LIAISON Unavailable Unavailable BROWN, CR [address] LIAISON Unavailable Unavailable BROWN, CR [address] LIAISON Unavailable Unavailable BROWN, CR MAR[address] COURT LIAISON Unavailable Unavailable BROWN, CR MAR[address] COURT LIAISON Unavailable Unavailable BROWN, CR MAR[address] COURT LIAISON Unavailable Unavailable BROWN, CR MARÍA COURT LIAISON Unavailable Unavailable BROWN, CR MARÍA COURT LIAISON Unavailable Unavailable BROWN, CR MAR[address] COURT LIAISON Unavailable Unavailable BROWN, CR MAR[address] COURT LIAISON Unavailable Unavailable BROWN, CR MAR[address] COURT LIAISON Unavailable Unavailable BROWN, CR MAR[address] COURT LIAISON Unavailable Unavailable BROWN, CR MARÍA COURT LIAISON Unavailable Unavailable BROWN, CR MARÍA COURT LIAISON Unavailable Unavailable BROWN, CR MARÍA COURT LIAISON Unavailable Unavailable BROWN, CR MARÍA COURT LIAISON Unavailable Unavailable BROWN, CR MARÍA COURT LIAISON Unavailable Unavailable BROWN, CR MARÍA COURT LIAISON Unavailable Unavailable BROWN, CR MARÍA COURT LIAISON Unavailable Unavailable BROWN, CR MARÍA COURT LIAISON Unavailable Unavailable BROWN, CR MARÍA COURT LIAISON Unavailable Unavailable Re-disclosure Warning The records that [...] is protected by Article 27-F of the [facility] Public Health law. If you continue you may have access to information: Regarding HIV / AIDS; Provided by facilities licensed or operated by the [facility] Office of Mental Health; or Provided by the [facility] Office for People With Developmental Disabilities. If such information is present, then the following [facility] mandated warning applies: This information has been [...] law may result in a fine or skilled nursing sentence or both. A general authorization for the release of medical or other information is NOT sufficient authorization for further disc losure. Allergies and Adverse Reactions Type Description Substance Reaction Status Data Source(s ) Drug allergy Drug allergy ibuprofen (From Motrin) [facility] Drug allergy Drug allergy Latex, Natural Rubber Rash [facility] Ibuprofen Ibuprofen [facility] ([facility]) Encounters Encounter Providers Location Date Indications Data Source(s ) Emergency Attender: Elsie Can MD ED-ED 021 06:33:00 PM EST - 04/27/2021 07:27:00 PM EST FEELS LIKE SHES GOING TO HURT HERSELF [facility] FEELS LIKE SHES GOING TO HURT HERSELF Patient discharged. Outpatient Attender: MARÍA LOREDO NP CPSCAORT-CPSGNOBG 09/2020 01:00:00 PM EDT - 04/14/2021 01:01:00 PM EDT [facility] Patient discharged. Outpatient Attender: MARÍA LOREDO NP ED-IMAG 2020 11:06:00 AM EDT - 04/08/2021 11:07:00 AM EDT PELVIC PAIN [facility] PELVIC PAIN Patient discharged. Outpatient Attender: Atul Mathewdmitter: Atul Savage [address] [place] [address] 04/01/2021 10:00:00 AM EDT [facility] ([facility]) Patient admitted. Emergency Attender: Cody Crisostomo [...] AM EDT - 03/26/2021 08:06:00 AM EDT [facility] Patient discharged. Outpatient Attender: KIMBER Loredo FNPAttender: MARÍA LOREDO NP ED-LAB 03/25/2021 01:05:00 PM EDT - 03/25/2021 01:06:00 PM EDT Z124 [facility] Z124 Patient discharged. Outpatient Attender: KIMBER Loredo FNPAttender : MARÍA LOREDO NP CPSCAORT-LABEJN 03/25/2021 10:20:00 AM EDT Z12.4 [facility] Z12.4 Outpatient Attender: MARÍA LOREDO NP CPSCAORT-CPSGNOBG 03/11 09:35:00 AM EDT - 03/25/2021 09:36:00 AM EDT [facility] Patient discharged. Outpatient Attender: La Handy MD CPSJAROCHO-CPSCARAFAL 11:20:00 AM EDT - 03/10/2021 11:21:00 AM EDT [facility] Patient discharged. Outpatient Attender: La Handy MD ED-LABCOVGH 02/10 07:02:00 PM EDT - 03/08/2021 07:03:00 PM EDT Z01.812 [facility] Z01.812 Patient discharged. Outpatient Attender: Jsose SIMS-CPSGNIMD 021 11:22:00 AM EDT - 02/28/2021 11:23:00 AM EDT [facility] Patient discharged. Outpatient Attender: JUANITO BUI MDReferrer: Josse Mills 02/09/2021 12:09:18 PM EDT [facility] Rec[facility]ring Patient Referrer: Josse Mills 02/09/2021 10:33: 53 AM EDT [facility] Patient Referrer: Josse Mills 02/09/2021 10:22: 54 AM EDT [facility] Rec[facility]ring Patient Referrer: Josse Mills 12/31/2020 12:25: 36 PM EDT [facility] Outpatient Attender: Josse Mills CPSCAORT-CPSGNIMD 021 04:01:00 PM EDT - 12/09/2020 04:02:00 PM EDT [facility] Patient discharged. Outpatient Attender: Josse Mills CPSCAORT-CPSGNIMD 021 08:18:00 AM EDT - 10/25/2020 08:19:00 AM EDT [facility] Patient discharged. Outpatient Attender: ENRIQUETA BOLANOS MD Main office - [facility] 08/16/2020 02:00:00 PM EST [facility] ([facility]) Outpatient Attender: ENRIQUETA BOLANOS MD Main office - [facility] 07/06/2020 11:30:00 AM EST [facility] ([facility]) Outpatient Attender: Josse Gene CPSCAORT-CPSGNIMD 021 02:40:00 PM EST - 06/24/2020 02:41:00 PM EST [facility] Patient discharged. Outpatient Attender: Anny Zhao alberto 03/17/2020 03:45:00 PM EDT [facility] ([facility] Outpatient Attender: Tye Zamorano MD 03/11/2020 02:34:00 P M EDT SINUSITIS,R42 [facility] SINUSITIS,R42 Immunizations Vaccine Date Status Description Data Source(s) COVID-19 VACCINE Moderna 04/24/2021 12:00:00 AM EST completed [facility] Vaccine Series Complete: NOThis Data was Submitted to [facility]. TB Skin test is not vaccine. 03/17/2020 02:42:00 PM EDT completed [facility] ([facility] Medications Medication Brand Name Start Date Product [...] Xanax 08/05/2020 12:00:00 AM EST active [facility] ([facility], ) Alprazolam 0.5 MG Oral Tablet ALPRAZOLAM [...] type / Coverage type Policy ID Covered libertarian ID Covered libertarian's relationship to burgess Policy Burgess Plan Information [facility] Comm Plan Medicaid F [id number] SELF [id number] [facility] Comm Plan Medicaid F [id number] SELF [id number] [facility] 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 [id number] [facility] [id number] 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 [id number] MEDICAID [id number] 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 B [id number] [facility] [id number] SP [id number] [facility] [id number] SP [id number] [facility] [id number] SP [id number] MEDICAID [id number] SP [id number] P HEALTH CARE O [id number] S [id number] [facility] COMM PLAN [id number] 18 [id number] MEDICAID CLINIC -PHYSICIAN [id number] 1 8 [id number] MEDICAID -CLINIC [id number] MEDICAID S [id number] S [id number] [facility](MCAID) P [id number] S [id number] SELF PAY UNAVAILABLE UNAVAILA BLE AMERICHOICE UNHC XIX HMO -RECURRING [id number] 1 [id number] [facility] BLUE SHIELD-RECURRING [id number] 18 [id number] [facility] PLUS -O/P [id number] [facility] COMMUNITY PLAN [facility] [id number] [facility] [id number] 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 [id number] Problems, Conditions, and Diagnoses Code Display Name Description Problem Type Effective Dates Data Source(s) R10.32 Left lower quadrant pain LEFT LOWER QUADRANT PAIN Diag nosis 04/14/2021 01:00:00 PM EDT [facility] R10.2 Pelvic and perineal pain PELVIC AND PERINEAL PAIN Diag nosis 04/14/2021 01:00:00 PM EDT [facility] Z30.013 Encounter for initial prescription of in jectable contraceptive ENCOUNTER FOR INITIAL PRESCRIPTION OF INJECTABLE CONTRACEP Diagnosis 09/2020 01:00:00 PM EDT [facility] G56.01 Carpal tunnel syndrome, right upper limb Carpal tunnel syndrome, right upper limb Diagnosis 04/01/2021 12:00:00 AM EDT [facility] ([facility]) G56.20 Lesion of ulnar nerve, unspecified upper limb Lesion of ulnar nerve, unspecified upper limb Diagnosis 04/01/2021 12:00:00 AM EDT [facility] ([facility]) H40.9 Unspecified glaucoma Unspecified glaucoma Diagnosis 04/01/2021 12:00:00 AM EDT [facility] ([facility]) J45.909 Unspecified asthma, uncomplicated Unspecified as thma, uncomplicated Diagnosis 04/01/2021 12:00:00 AM EDT [facility] M15.4 Erosive (osteo)arthritis Erosive (osteo)arthritis Diag nosis 04/01/2021 12:00:00 AM EDT [facility] ([facility]) M50.30 Other cervical disc degeneration, unspec ified cervical region Other cervical disc degeneration, unspecified cervical region Diagnosis 04/01/2021 12:00:00 AM EDT [facility] ([facility]) N83.209 Unspecified ovarian cyst, unspecified si de Unspecified ovarian cyst, unspecified side Diagnosis 04/01/2021 12:00:00 AM EDT [facility] ([facility]) F33.1 Major depressive disorder, recurrent, mo derate Major depressive disorder, Recurrent episode, Moderate Diagnosis 04/01/2021 12:00:00 AM EDT [facility] ([facility]) F43.10 Post-traumatic stress disorder, unspecif ied Posttraumatic stress disorder Diagnosis 04/01/2021 12:00:00 AM EDT [facility] ([facility]) M25.559 Pain in unspecified hip PAIN IN UNSPECIFIED HIP Diagno sis 03/27/2021 12:49:00 PM [facility] M54.9 Dorsalgia, unspecified DORSALGIA, UNSPECIFIED Diagnosi s 03/27/2021 12:49:00 PM [facility] G56.21 Lesion of ulnar nerve, right upper limb LESION OF ULNAR NERVE, RIGHT UPPER LIMB Diagnosis 03/26/2021 08:05:00 AM T [facility] G56.01 Carpal tunnel syndrome, right upper limb CARPAL TUNNEL SYNDROME, RIGHT UPPER LIMB Diagnosis 03/26/2021 08:05:00 AM [facility] M77.8 Other enthesopathies, not elsewhere clas sified OTHER ENTHESOPATHIES, NOT ELSEWHERE CLASSIFIED Diagnosis 03/26/2021 08:05:00 AM [facility] M67.431 Ganglion, right wrist GANGLION, RIGHT WRIST Diagnosis 03/26/2021 08:05:00 AM [facility] M25.521 Pain in right elbow PAIN IN RIGHT ELBOW Diagnosis 1 08:05:00 AM [facility] Z11.51 Encounter for screening for human papill omavirus (HPV) ENCOUNTER FOR SCREENING FOR HUMAN PAPILLOMAVIRUS (HPV) Diagnosis 03/25/2021 01:05:00 PM [facility] Z12.4 Encounter for screening for malignant ne oplasm of cervix ENCOUNTER FOR SCREENING FOR MALIGNANT NEOPLASM OF CERVIX Diagnosis 03/25/2021 01:05: 00 PM [facility] N91.2 Amenorrhea, unspecified AMENORRHEA, UNSPECIFIED Diagno sis 03/25/2021 09:35:00 AM [facility] Z12.4 Encounter for screening for malignant ne oplasm of cervix ENCOUNTER FOR SCREENING FOR MALIGNANT NEOPLASM OF CERVIX Diagnosis 03/25/2021 09:35: 00 AM [facility] Z12.39 Encounter for other screening for malign ant neoplasm of breast ENCOUNTER FOR OTH SCREENING FOR MALIGNANT NEOPLASM OF BREAST Diagnosis 09:35:00 AM [facility] Z01.419 Encounter for gynecological examination (general) (routine) without abnormal findings ENCNTR FOR VEHICLE SAFETY INSPECTOR EXAM (GENERAL) (ROUTINE) W/O ABN FINDIN GS Diagnosis 03/25/2021 09:35:00 AM [facility] F17.200 Nicotine dependence, unspecified, uncomp licated NICOTINE DEPENDENCE, UNSPECIFIED, UNCOMPLICATED Diagnosis 03/10/2021 11:20:00 AM [facility] R09.81 Nasal congestion NASAL CONGESTION Diagnosis 03/10/2021 11 :20:00 AM [facility] Z86.69 Personal history of other di seases of the nervous system and sense organs PERSONAL HISTORY OF DIS OF THE NERVOUS SYS AND SENSE ORGANS Diagnosis 03/10/2021 11:20:00 AM [facility] Z78.9 Other specified health status OTHER SPECIFIED HEALTH S TATUS Diagnosis 03/10/2021 11:20:00 AM [facility] J34.3 Hypertrophy of nasal turbinates HYPERTROPHY OF NASAL T URBINATES Diagnosis 03/10/2021 11:20:00 AM [facility] J34.2 Deviated nasal septum DEVIATED NASAL SEPTUM Diagnosis 03/10/2021 11:20:00 AM [facility] M79.601 Pain in right arm PAIN IN RIGHT ARM Diagnosis 02/28 11:22:00 AM [facility] M51.9 Unspecified thoracic, thorac olumbar and lumbosacral intervertebral disc disorder UNSP THORACIC, THORACOLUM AND LUMBOSACR INTVRT DISC DISORDER Diagnosis 12/09/2020 04:01:00 PM [facility] R09.82 Postnasal drip POSTNASAL DRIP Diagnosis 10/25/2020 08:18: 00 AM [facility] L20.84 Intrinsic (allergic) eczema INTRINSIC (ALLERGIC) ECZEM A Diagnosis 10/25/2020 08:18:00 AM [facility] M25.511 Pain in right shoulder PAIN IN RIGHT SHOULDER Diagnosi s 10/25/2020 08:18:00 AM [facility] [id number] Occipital headache Occipital headache Problem 12:00:00 AM EST [facility] ([facility]) Surgeries/Procedures Procedure Description Date Indications Data Source(s) OFFICE OUTPATIENT VISIT 10 MINUTES OFFICE/OUTPATIENT VISIT E ST 04/14/2021 12:00:00 AM [facility] THERAPEUTIC PROPHYLACTIC/DX INJECTION SUBQ/IM THER/PROPH/PATTI G INJ SC/IM 04/14/2021 12:00:00 AM [facility] Injection, medroxyprogesterone acetate, 1 mg 12:00:00 AM [facility] RADEX WRIST COMPLETE MINIMUM 3 VIEWS X-RAY EXAM OF WRIST 12:00:00 AM [facility] RADEX ELBOW COMPLETE MINIMUM 3 VIEWS X-RAY EXAM OF ELBOW 12:00:00 AM [facility] [address]235 HPV HIGH-RISK TYPES 03/25/2021 12:00:00 AM [facility] CYTP CERV/VAG AUTO THIN LAYER PREP MNL SCREEN CYTOPATH C/V T HIN LAYER 03/25/2021 12:00:00 AM [facility] PERIODIC PREVENTIVE MED EST PATIENT 18-39 YRS PREV VISIT EST AGE 18-39 03/25/2021 12:00:00 AM [facility] OFFICE OUTPATIENT VISIT 5 MINUTES OFFICE/OUTPATIENT VISIT ES T 03/10/2021 12:00:00 AM [facility] NASAL ENDOSCOPY DIAGNOSTIC UNI/BI SPX NASAL ENDOSCOPY DX 12:00:00 AM [facility] Magnetic Resonance Angiogtaphy Head W/O Contrast Material(S) 08/12/2020 12:00:00 AM EST [facility] ([facility]) Magnetic Resonance Angiogtaphy Head W/O Contrast Material(S) 08/12/2020 12:00:00 AM EST [facility] ([facility]) Magnetic Resonance Angiography Neck W/O Contrast Materials 08/12/2020 12:00:00 AM EST [facility] ([facility]) Magnetic Resonance Angiography Neck W/O Contrast Materials 08/12/2020 12:00:00 AM EST [facility] ([facility]) Results ID Date Data Source [id number] 04/09/2021 06:09:00 AM EDT [facility] Imaging Services Department Imaging Report [address], [place] [address] %(RAD)RES..mtdd.print.filter("line") Name: MICHELET VÁZQUEZ : 1985 Age/Sex: 35F Ordering Provider: KIMBER Lord Med Rec #: [id number] Reg Status: [facility] REF Room #: Date of Service: 04/08/21 Report Number: [id number] cc:KIMBER Lord; Josse Mills MD Send Report To: [id number] US/US Transvaginal Reason for exam: PELVIC PAIN [...] Date/Time: 04/08/21 1233 Transcribed Date/Time: 04/09/21 0609 Foundation Coordinator: MARTHA Name Value Range Interpretation Code Description Data Cindy rce(s) Supporting Document(s) ID Date Data Source [id number] 03/27/2021 01:32:00 PM [facility] Name Value Range Interpretation Code Description Data Cindy rce(s) Supporting Document(s) HCG,Ur Negative Normal (applies to non-numeric results) [facility] ID Date Data Source [id number] 03/28/2021 10:23:00 AM [facility] Imaging Services Department Imaging Report [address] [address] %(RAD)RES..mtdd.print.filter("line") Name: MICHELET VÁZQUEZ : 1985 Age/Sex: 35F Ordering Provider: Cody Crisostomo MD Med Rec #: [id number] Reg Status: [facility] Room #: Date of Service: 03/27/21 Report Number: [id number] cc:Josse Mills MD Send Report To: [id number] XRP/XR Hip Rt 2-3 Views Reason for [...] Date/Time: 03/27/21 1404 Transcribed Date/Time: 03/28/21 1023 Foundation Coordinator: DAVE Name Value Range Interpretation Code Description Data Cindy rce(s) Supporting Document(s) ID Date Data Source [id number] 03/28/2021 10:21:00 AM EDT [facility] Imaging Services Department Imaging Report [address] [place] [address] %(RAD)RES..mtdd.print.filter("line") Name: MICHELET VÁZQUEZ : 1985 Age/Sex: 35F Ordering Provider: Cody Crisostomo MD Med Rec #: [id number] Reg Status: [facility] Room #: Date of Service: 03/27/21 Report Number: [id number] cc:Josse Mills MD Send Report To: [id number] XRP/XR L Spine Complete Reason for exam: [...] Date/Time: 03/27/21 1404 Transcribed Date/Time: 03/28/21 102 Foundation Coordinator: DAVE Name Value Range Interpretation Code Description Data Cindy rce(s) Supporting Document(s) ID Date Data Source [id number] 03/28/2021 10:17:00 AM EDT [facility] Imaging Services Department Imaging Report [address] [place] [address] %(RAD)RES..mtdd.print.filter("line") Name: MICHELET VÁZQUEZ : 1985 Age/Sex: 35F Ordering Provider: Cody Crisostomo MD Med Rec #: [id number] Reg Status: [facility] Room #: Date of Service: 03/27/21 Report Number: [id number] cc:Josse Mills MD Send Report To: [id number] XRP/XR T Spine 3 View Reason for [...] Date/Time: 03/27/21 1404 Transcribed Date/Time: 03/28/21 1017 Foundation Coordinator: DAVE Name Value Range Interpretation Code Description Data Cindy rce(s) Supporting Document(s) ID Date Data Source [id number] 04/01/2021 05:05:00 PM EDT [facility] Name Value Range Interpretation Code Description Data Cindy rce(s) Supporting Document(s) HPV Detection,High Risk result Negative N ormal (applies to non-numeric results) [facility] Test Performed By: [facility] [address] [place] [address] Director: Gaby Trevino MD . No E6 or E7 mRNA is detected from HPV types 16,18,31,33,35,39,45,51,52,56,58,59,66, and 68 by nucleic acid amplification. ID Date Data Source [id number] 04/01/2021 04:36:00 PM EDT [facility] Name Value Range Interpretation Code Description Data Cindy rce(s) Supporting Document(s) HPV Detection,High Risk Types Negative No rmal (applies to non-numeric results) [facility] Test Performed By: [facility] [address] [place] [address] Director: Gaby Trevino MD . No E6 or E7 mRNA is detected from HPV types 16,18,31,33,35,39,45,51,52,56,58,59,66, and 68 by nucleic acid amplification. ID Date Data Source [id number] 03/31/2021 09:31:00 PM EDT [facility] VEHICLE SAFETY INSPECTOR TEST TO BE ORDERED: PAP and HPV (HR )LAST MENSTRUAL PERIOD 01/29/21SOURCE OF SPECIMEN Endo/ExocxCLINICAL FINDINGS normal examCLINICAL DIAGNOSIS Screening, low risk (cx) Name Value Range Interpretation Code Description Data Cindy rce(s) Supporting Document(s) Cytology Order VEHICLE SAFETY INSPECTOR Pap result LAB SendOut No rmal (applies to non-numeric results) [facility] ID Date Data Source [id number] 03/31/2021 07:47:00 PM EDT [facility] Name Value Range Interpretation Code Description Data Cindy rce(s) Supporting Document(s) ID Date Data Source [id number] 03/08/2021 03:38:00 PM EDT [facility] Name Value Range Interpretation Code Description Data Cindy rce(s) Supporting Document(s) Respiratory specimen severe acute respir atory syndrome coronavirus 2 (SARS-CoV-2) RNA Negative (qualifier value) [facility] and reported by . ID Date Data Source [id number] 03/09/2021 02:41:00 PM EDT [facility] FAX TO [phone] Name Value Range Interpretation Code Description Data Cindy rce(s) Supporting Document(s) SARS-CoV-2 RNA INHOUSE Negative Normal (applies to non-n umeric results) [facility] THIS IS A STATE REPORTABLE COMMUNICABLE DISEASE. Testing was performed using the MarkTend COVID-19 MDx Assay. This test has been [...] be found at the following links: Providers: https://www.fda.gov/media/743547/download Patients : https://www.fda.gov/media/943413/download Negative results do not preclude SARS-CoV-2 infection and should not be used as the sole basis for patient management decisions. Negative results must be combined with clinical observations,patient history, and epidemiological information. ID Date Data Source [id number] 02/09/2021 12:09:18 PM EDT [facility] PCName: Michelet NuñezhanDOB: 1985Provider: Teodoro Bui: 02/09/2021 Reason For VisitMichelet Vázquez is here today for Bilateral hand and elbows. Patient is seen at the request of PCP. Michelet has not had the Covid vaccine. Michelet Vázquez is a new patient and Michelet Vázquez is here for a second opinion. previously seeing Ortho in [place]. Michelet complains of numbness/tingling in all fingers. She complains of lacking strength in both arms. She states Right side symptoms worse. Other DOI/DOO: No injury- onset 5-6 years. The patient's pain is managed by Dr. Mirza. ([facility]). Patient is working at this time at regular duty. Plan 1. X-Ray I Elbow - 2 views (XRays were ordered, obtained and interpreted today in the office. Indication: pain/dysfunction.); Status:Complete; Done: [id number] Perform:SOS05; Due:[id number]; Last Updated By:Dru Jackson; 02/09/2021 10:43:16 AM;Ordered; For:Pain of both elbows; Ordered By:Teodoro Bui;Laterality: : Bilateral 2. X- Ray I Hand - 3 views (XRays were ordered, obtained and interpreted today in the office. Indication: pain/dysfunction.); Status:Complete; Done: 09Feb2021 Perform:SOS05; Due:[id number]; Last Updated By:Dru Jackson; 02/09/2021 10:43:16 AM;Ordered; [...] document was dictated and electronically signed using [employer] software. A reasonable attempt at proof reading has been made to minimize errors. Please call with any questions. Signatures Electronically signed by : Teodoro Bui M.D.; Feb 09 2021 12:09PM EST (Author) Name Value Range Interpretation Code Description Data Cindy rce(s) Supporting Document(s) ID Date Data Source [id number] 03/12/2020 02:45:00 PM EDT [facility] [address] [place] [address] [phone] NAME SEX PT STATUS ACCOUNT NUMBER MICHELET VÁZQUEZ REG REF [id number] ORDERING PHYSICIAN LOCATION MED[facility] RECORD [facility] [place] [id number] ATTENDING PHYSICIAN DATE OF DATE OF EXAM/TIME JEIMY JACKSON 1985 03/11/20 / 1517 TYPE / EXAM CT Maxillofacial area w/o cont REASON FOR EXAM CHRONIC PANSINUSITIS MICHELET VÁZQUEZ [id number] 1985 ADDENDUM Clinical History/Indication for Exam: VERTIGO [...] Trans Dt/Tm: Trans by: DT Prt Dt/Tm: 1394-7724: Total DLP = 56.00 mGy-cm 1845-7750: Total Radiation Dose = 0.1736 mSv Lifetime Dose: 0.1736 mSv Name Value Range Interpretation Code Description Data Cindy rce(s) Supporting Document(s) Procedure Social History No Information Vital Signs ID Date Data Source UNK Name Value Range Interpretation Code Description Data Source(s) Systolic blood pressure 128 mm[Hg] 128 mm[Hg] M EDENT ([facility]) Diastolic blood pressure 84 mm[Hg] 84 mm[Hg] MEDENT ([facility]) Respiratory rate 14 /min 14 /min [facility] Heart rate 70 /min 70 /min MEDENT ([facility]) Oxygen saturation in Arterial blood by Pulse oximetry 98 % 98 % MEDENT ([facility]) Body temperature 98.3 [degF] 98.3 [degF] MEDENT ([facility]) Body weight 160.00 [lb_av] 160.00 [lb_av] MEDEN T ([facility]) Body height 68 [in_i] 68 [in_i] MEDENT ([facility]) 5'8" Body mass index (BMI) [Ratio] 24.3 kg/m2 24.3 k g/m2 [facility] ([facility]) ID Date Data Source [id number] 04/27/2021 07:28:00 PM EST [facility] Name Value Range Interpretation Code Description Data Source(s) Weight Measurement Method 8 8 [facility] Weight 2240 2240 [facility] pital Temperature Source 7 7 [facility] Temperature 97.7 97.7 [facility] spital Respiratory Effort 1 1 [facility] Respiratory Rate 20 20 [facility] Pulse Assessment Method 4 4 [facility] Pulse Rate 69 69 [facility] pital Height [address] [facility] Pressure 130/92 130/92 [facility] ID Date Data Source [id number] 03/29/2021 08:27:00 AM EDT [facility] spital Name Value Range Interpretation Code Description Data Source(s) Weight Measurement Method 8 8 [facility] Weight 2320 2320 [facility] pital Temperature Source 3 3 [facility] Temperature 98.2 98.2 [facility] spital Respiratory Effort 1 1 [facility] Respiratory Rate 16 16 [facility] Pulse Assessment Method 4 4 [facility] Pulse Rate 84 84 [facility] pital Height [address] [facility] Blood Pressure 132/74 132/74 [facility] Weight Measurement Method 8 8 [facility] Weight 2320 2320 [facility] pital Temperature Source 3 3 [facility] Temperature 98.1 98.1 [facility] Respiratory Effort 1 1 [facility] Respiratory Rate 18 18 [facility] Pulse Assessment Method 4 4 [facility] Pulse Rate 82 82 [facility] pital Height 68 68 [facility] pital Blood Pressure 128/79 128/79 [facility] Weight Measurement Method 8 8 [facility] Weight 2320 2320 [facility] pital Temperature Source 3 3 [facility] Temperature 97.9 97.9 [facility] Respiratory Effort 1 1 [facility] Respiratory Rate 18 18 [facility] Pulse Assessment Method 4 4 [facility] Pulse Rate 71 71 [facility] pital Height 68 68 [facility] pital Blood Pressure 131/93 131/93 [facility] ID Date Data Source [id number] 03/28/2021 03:19:00 AM EDT [facility] Name Value Range Interpretation Code Description Data Source(s) Weight Measurement Method 8 8 [facility] Weight 2320 2320 [facility] pital Temperature Source 3 3 [facility] Temperature 98.0 98.0 [facility] Respiratory Effort 1 1 [facility] Respiratory Rate 20 20 [facility] Pulse Assessment Method 4 4 [facility] Pulse Rate 72 72 [facility] pital Height 68 68 [facility] pital Blood Pressure 131/84 131/84 [facility] Weight Measurement Method 8 8 [facility] Weight 2320 2320 [facility] pital Temperature Source 3 3 [facility] Temperature 98.0 98.0 [facility] Respiratory Effort 1 1 [facility] Respiratory Rate 20 20 [facility] Pulse Assessment Method 4 4 [facility] Pulse Rate 72 72 [facility] pital Height 68 68 [facility] pital Blood Pressure 131/84 131/84 [facility] Weight Measurement Method 8 8 [facility] Weight 2320 2320 [facility] pital Temperature Source 3 3 [facility] Temperature 98.0 98.0 [facility] spital Respiratory Effort 1 1 [facility] Respiratory Rate 20 20 [facility] Pulse Assessment Method 4 4 [facility] Pulse Rate 72 72 [facility] Height 68 68 [facility] Blood Pressure 131/84 131/84 [facility]
[2021-04-29] MEDS ORDERED: HOME MED LIST COMPLETE! XX SCH (14:50)
[2021-04-29 15:13] VITALS: BP 117/80
[2021-04-29] MEDS ORDERED: diphenhydrAMINE 50MG/ML VIAL (J1200) IM ONE (16:00)
[2021-04-29] MEDS ORDERED: HALOPERIDOL 5MG/ML VIAL (J1630 PER 1) IM ONE (16:00)
[2021-04-29] MEDS ORDERED: LORazepam 2 MG/ML VIAL IM ONE (16:00)
[2021-04-29] MEDS ORDERED: ACETAMINOPHEN 325 MG TAB PO PRN (17:05)
[2021-04-29] MEDS: PERCOCET 5MG/325MG TAB PO PRN (18:03)
[2021-04-30 06:30] VITALS: BP 114/72
--- NOTE | 2021-04-30 08:04 | ECGEPIP ---
[facility] - ED Test Date: 2021-04-29 Pat Name: MICHELET VÁZQUEZ Department: Room: [place] [address] Gender: Female Service Planner: MARYLIN : 1985 Requested By: Gabriella Fischer Order Number: [id number] Reading MD: Gabriella Fischer Measurements Intervals [place] Rate: 64 P: 70 SC: 128 QRS: 75 QRSD: 90 T: 39 QT: 396 QTc: 408 Interpretive Statements Normal sinus rhythm No prior Electronically Signed on 04-30-2021 8:03:56 EST by Gabriella Fischer
[2021-04-30] MEDS: PERCOCET 5MG/325MG TAB PO PRN ×3 (08:15→20:58)
[2021-04-30] MEDS: LORazepam 1 MG TAB PO PRN ×2 (08:16→21:00)
[2021-04-30] MEDS: NICOTINE 7 MG/24 HR TRANSDERMAL TD SCH ×2 (08:37→18:14)
[2021-04-30 18:54] VITALS: BP 130/64
[2021-04-30] MEDS ORDERED: LURASIDONE 20 MG TAB (LATUDA) PO ONE (20:00)
[2021-04-30] MEDS: PILL CUTTER 1 EACH XX PRN (20:57)
[2021-05-01 06:33] VITALS: BP 101/60
[2021-05-01] MEDS: NICOTINE 7 MG/24 HR TRANSDERMAL TD SCH (08:21)
[2021-05-01] MEDS: PERCOCET 5MG/325MG TAB PO PRN ×3 (08:24→20:51)
[2021-05-01] MEDS: PILL CUTTER 1 EACH XX PRN ×2 (08:24→14:37)
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
[2021-05-01] MEDS: LORazepam 1 MG TAB PO PRN ×2 (11:36→21:20)
--- NOTE | 2021-05-01 16:32 | HPEPDOC ---
General Date of Admission Apr 29, 2021 at 11:34 Date of Service: May 01, 2021 Chief Complaint The patient is a 35-year-old female admitted with a reason for visit of Unspecified Depressive Do. Source: Patient History of Present Illness 35-year-old female with past medical history of anxiety, depression, mood disorder was admitted after overdose with tizanidine. She is being medically examined here. Today she complains of having mild headache and feeling a little hot. She has not been febrile. Denies any sore throat cough or phlegm denies any abdominal pain nausea vomiting or diarrhea. 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 Chronic headaches Degenerative disc disease Anxiety Depression Surgical History Tonsillectomy Cyst for hemorrhagic cyst Family History Significant Family History: Asthma (Mother), Diabetes (Diabetes in maternal grandmother and maternal uncle), Other (Stroke in maternal grandmother and maternal uncle) Father many years ago he had depression and other mental health issues Social History * Smoker: current smoker Alcohol: rarely Drugs: marijuana A-FIB/CHADSVASC A-FIB History Current/History of A-Fib/PAF?: No Review of Systems Constitutional: Denies: Chills, Fever, Night Sweats Eyes: Denies: Pain, Vision change ENT: Reports: Head Aches; Denies: Ear Pain, Dysphagia Skin: Denies: Rash, Lesions, Breakdown Pulmonary: Denies: Dyspnea, Cough Cardiovascular: Denies: Chest Pain, Palpitations, Orthopnea, Paroxysmal Noc. Dyspnea, Lt Headedness Gastrointestinal: Denies: Nausea, Vomiting, Abdominal Pain, Diarrhea Genitourinary: Denies: Dysuria, Frequency, Incontinence, Retention Musculoskeletal: Denies: Neck Pain, Back Pain, Joint Pain, Muscle Pain, Spasms Neurological: Denies: Weakness, Numbness, Change in speech, Confusion Physical Examination General Exam: Positive: Alert, Cooperative, No Acute Distress Eye Exam: Positive: PERRLA, Conjunctiva & lids normal, EOMI; Negative: Sclera icteric ENT Exam: Positive: Atraumatic, Mucous membr. moist/pink, Pharynx Normal Neck Exam: Positive: Supple; Negative: JVD, thyromegaly Chest Exam: Positive: Clear to auscultation, Normal air movement Heart Exam: Positive: Rate Normal, Regular Rhythm, Normal S1, Normal S2; Negative: Murmurs, Rubs Abdomen Exam: Positive: Normal bowel sounds, Soft; Negative: Tenderness, Hepatospenomegaly Extremity Exam: Negative: Clubbing, Cyanosis, Edema Neuro Exam: Positive: Normal Gait, Normal Speech, Strength at 5/5 X4 ext, Normal Tone Psych Exam: Positive: Memory Intact, Oriented x 3 Vital Signs Vital Signs Date Time Temp Pulse Resp B/P (MAP) Pulse Ox O2 Delivery O2 Flow Rate FiO2 05/01/21 09:00 99.3 05/01/21 09:00 16 05/01/21 08:24 72 05/01/21 06:33 101/60 (74) 97 Room Air Assessment/Plan 35-year-old female with past medical history of anxiety, depression, mood disorder was admitted after overdose with tizanidine. She is being medically examined here. Anxiety, depression and mood disorder As per psychiatry No acute medical issue at this time Plan / VTE VTE Prophylaxis Ordered?: No (Fully ambulatory) Paris Frost MD May 01, 2021 14:05
[2021-05-01] MEDS ORDERED: LURASIDONE HCL 40 MG TAB (LATUDA) PO SCH (21:00)
[2021-05-02 06:31] VITALS: BP 131/83
[2021-05-02] MEDS: PILL CUTTER 1 EACH XX PRN (08:25)
[2021-05-02] MEDS: NICOTINE 7 MG/24 HR TRANSDERMAL TD SCH (08:26)
[2021-05-02] MEDS: PERCOCET 5MG/325MG TAB PO PRN (08:28)
[2021-05-02] MEDS: LORazepam 1 MG TAB PO PRN (09:12)
[2021-05-02] MEDS ORDERED: ATIV1TAB7 PO (09:49)
[2021-05-02] MEDS ORDERED: NICO7PA TD (09:49)
[2021-05-02] MEDS ORDERED: LATU40TA PO (09:49)
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
--- NOTE | 2021-05-03 10:24 | MHIPN ---
[facility] PROGRESS NOTE DATE: 05/01/2021 This is a video assessment, we are doing this because of the pandemic. She is in the inpatient unit, I am at home, she is seen in the presence of staff. CHIEF COMPLAINT: Feels better. SUBJECTIVE: Seen for followup, indicates has been feeling better, and that her mind does not race, feels calmer. Says had some difficulties with sleep, took the trazodone, when she took the Latuda as well, feels the Latuda has helped, had a hard time getting to sleep. Has spoken with her brother, says that has gone well, and he is helping her arrange for a place when she leaves, plans not to go back to live with her mother, and will be looking for a place of her own eventually. Says has not spoken with her mother, does not intend to for now. Says she plans staying close enough to her to help look after her, she has been living with her mother for the past 10 years or so. MENTAL STATUS EXAMINATION: Neat, cooperative, no agitation, no psychomotor retardation, appears calmer, more relaxed, she is coherent, not tearful. Denies any thoughts of harming herself or anyone else, there is no evidence of any psychosis. Cognition grossly intact. Judgment and insight possibly somewhat improved. ASSESSMENT: Other specified bipolar and related disorder. Other specified anxiety disorder. Rule out posttraumatic stress disorder. Rule out bipolar type 2 disorder. Feels better, which is encouraging. Has tolerated the Latuda quite well so far, and I would suggest increasing it to 40 mg from tonight onwards. PLAN: Will continue the rest of the care, look at obtaining collateral information. She will be seeing the assigned clinician tomorrow, and further recommendations will be made.
== END 2021-05-02 10:55 | disposition home or self-care (01) | DRG 753 ==
LOC: M ED 14:48 → M ED INP 04-29 11:34 → M PSY 04-29 15:03
PROVIDERS: ADMIT Psychiatry & Neurology Psychiatry; ATTEND Psychiatry & Neurology Psychiatry
DX: F31.9 Bipolar disorder, unspecified (principal); F41.9 Anxiety disorder, unspecified; F43.10 Post-traumatic stress disorder, unspecified; Z88.6 Allergy status to analgesic agent; F17.200 Nicotine dependence, unspecified, uncomplicated; F12.90 Cannabis use, unspecified, uncomplicated